=== PATIENT | male | born 1995 | race Caucasian/White ===

== ENCOUNTER 2017-11-09 14:32 | Emergency (ER) | payer BC, SELFPAY ==
[2017-11-09 14:33] VITALS: BP 133/72; PULSE 77; RESP 16; TEMP 36; BMI 22.2
--- NOTE | 2017-11-09 15:50 | EKG12_ITS ---
Test Reason : DYSRHYTHMIA Blood Pressure : / mmHG Vent. Rate : 063 BPM Atrial Rate : 063 BPM P-R Int : 144 ms QRS Dur : 102 ms QT Int : 392 ms P-R-T Axes : 068 048 051 degrees QTc Int : 401 ms Normal sinus rhythm with sinus arrhythmia Normal ECG Confirmed by ZULLY CASTRO, NETO ([id number]), associate entertainment editor ZEKE CARDENAS ([id number]) on 11/12/2017 2:53:12 PM Referred By: MARIE Confirmed By:NETO ANDREA MD
--- NOTE | 2017-11-09 15:51 | ED.DCSUM_ITS ---
- ER Visit Summary Date of Service: 11/09/17 Chief Complaint: I think I am dehydrated History of Present Illness: The patient is a 22 M patient believes he is dehydrated because he works at [employer] and it was hot in there today. He had a headache and felt nauseous. He felt dizzy. He states it is better now that he is in the air conditioned area. He still has a headache and nausea. Denies any altered mental status feeling. No other symptoms Physical Examination: Vital signs reviewed. HEENT exam unremarkable. Heart is regular rate and rhythm without murmurs. Lungs are clear to auscultation. Abdomen is soft and nontender. Extremities reveal no edema. Skin exam normal. Neurologic exam normal. Test Results: EKG is normal sinus rhythm with no ST changes. Emergency Department Course and Treatment: Patient was orally rehydrated and given Zofran. He was already improved in the air conditioning. Leave he got overheated but there is no evidence of heat exhaustion or heat stroke. His pulse is normal. He will try to keep himself hydrated. I will give him Zofran ODT's for home Treatment Plan: Discharge Disposition: Dizziness, improved, nausea Impression: [] This note was generated with [employer] dictation software. It may contain incorrect words, spelling, and punctuation that were not noted in review of the chart prior to signing ED Disposition - Plan for ED Patient: Chief Complaint: Dizziness Referrals: Care Physician,No Primary [Primary Care Provider] -
[2017-11-09] MEDS: Ondansetron ODT 4 MG Tablet 8 MG PO (16:45)
[2017-11-09 16:47] VITALS: BP 130/74; PULSE 85; RESP 17; O2SAT 99
--- NOTE | 2017-11-09 17:08 | ED.DEP ---
ED Disposition - Plan for ED Patient: Disposition: Home or Assisted Living Chief Complaint: Dizziness Instructions: ED Dizziness [facility] Prescriptions: Ondansetron [Zofran Odt] 4 mg PO Q8H PRN PRN #10 tab PRN Reason: Nausea Referrals: Care Physician,No Primary [Primary Care Provider] -
[2017-11-09 17:20] VITALS: BP 117/82; PULSE 72; RESP 15; O2SAT 98
== END 2017-11-09 17:21 | disposition home or self-care (01) ==
PROVIDERS: Emergency Provider Emergency Medicine
DX: R42 Dizziness and giddiness (principal); R11.0 Nausea; R51 Headache; Z72.0 Tobacco use
CPT/HCPCS: 93005; 99283

== ENCOUNTER 2018-05-11 15:59 | Emergency (ER) | payer BC, SELFPAY ==
[2018-05-11 16:00] VITALS: BP 125/75; PULSE 106; RESP 14; TEMP 37.3; O2SAT 100; BMI 22.1
[2018-05-11 16:13] VITALS: TEMP 37.3
--- NOTE | 2018-05-11 16:27 | ED.VISSUMM ---
- ER Visit Summary Date of Service: 05/11/18 Chief Complaint: Abdominal pain History of Present Illness: The patient is a 22 M presenting with abdominal pain x 6 days. Patient complains of left upper quadrant abdominal pain. He states this is worsened with movement. He states it is not changed with eating. He denies nausea or vomiting. He has had intermittent diarrhea. Denies urinary complaints. Denies fever. Physical Examination: Vitals are stable. Patient is afebrile. Alert no acute distress. HEENT exam is unremarkable. Neck is supple. Lungs are clear and equal bilaterally. Heart is regular rate and rhythm. Abdomen is soft left upper quadrant tenderness with no rebound or guarding Extremities are unremarkable. Skin is warm and dry. Remainder of exam is unremarkable. Emergency Department Course and Treatment: Patient is given IV fluids. CBC, chemistries unremarkable. Liver lipase are normal. He was given a GI cocktail with improvement. He is resting comfortably on reevaluation. He is given a prescription for Pepcid. Advised to follow with Dr. Haq corporate operations compliance manager for no doc. Advised return to ED if worsening complaints. Disposition: Discharge home Impression: Abdominal pain This note was generated with [employer] dictation software. It may contain incorrect words, spelling, and punctuation that were not noted in review of the chart prior to signing ED Disposition - Plan for ED Patient: Chief Complaint: Abd Pain Instructions: ED Abdominal Pain Unkn Cause Prescriptions: Famotidine [Pepcid] 20 mg PO BID #28 tablet Referrals: Josias Haq MD [NON-STAFF] -
[2018-05-11] MEDS: 0.9% Normal Saline 1,000 ML 1000 ML IV (16:42)
[2018-05-11 16:58] LABS: Absolute Lymphocyte Count 1.48 X10^3/ul (0.83-4.51); Absolute Neutrophil Count 5.8 X10^3/uL (2.0-7.7); Basophil# 0.03 X10^3/uL; Basophil% 0.4 % (0-1); Eosinophil# 0.18 X10^3/uL; Eosinophils% 2.2 % (0-5); Hematocrit 44.3 % (40-54); Hemoglobin 14.9 g/dl (13.0-16.5); Lymphocyte # 1.48 X10^3/ul (4.0); Lymphocyte % 18.3 % (19-41); Mean Corp Hgb Conc 33.6 g/gl (32-36); Mean Corpuscular Hgb 31.8 pg (27.0-32.0); Mean Corpuscular Volume 94.7 fL (80-94); Monocyte% 7.4 % (0-10); Neutrophil # 5.77 X10^3/uL (2.7-7.7); Neutrophil % 71.6 % (47-70); Platelet Count 305 K/mm3 (150-450); RBC Distribution Width CV 13.2 % (11.6-14.6); RBC Distribution Width SD 45.6 fl (35.1-43.9); Red Blood Count 4.68 M/mm3 (4.6-6.2); White Blood Count 8.1 K/mm3 (4.4-11.0)
[2018-05-11 17:01] LABS: POSITIVE COUNT NO; POSITIVE DIFFERENTIAL NO; POSITIVE MORPHOLOGY NO
[2018-05-11 17:13] LABS: ALB/GLOB Ratio 1.1 RATIO (0.9-2.4); AST(SGOT) 18 U/L (15-37); Alanine Aminotransfer ALT/SGPT 12 U/L (16-61); Albumin, Serum 4.2 g/dL (3.2-5.0); Alkaline Phosphatase 76 U/L (45-117); Anion Gap 7 (5-15); BUN 10 mg/dL (7-18); BUN/Creat Ratio 11.5 RATIO (10-20); Chloride 101 mmol/L (98-107); Creatinine, Serum 0.87 mg/dL (0.70-1.30); EST Glomerular Filtration Rate 115 mL/min (>60); Est Glom Filt Rate - Afr Amer 139 mL/min (>60); Estimated Creatinine Clearance 130.75 ml/min; Globulin 3.7 g/dL (2.2-4.2); Glucose 100 mg/dL (74-106); Lipase 174 U/L (73-393); Potassium 4.3 mmol/L (3.5-5.1); Protein, Total 7.9 g/dL (6.4-8.2); Sodium Level 138 mmol/L (136-145)
[2018-05-11 17:14] VITALS: PULSE 103; RESP 16; TEMP 37.3; O2SAT 98
[2018-05-11] MEDS: Mag Hydrox/Al Hydrox/Simeth 30 ML UDC PO (17:35)
--- NOTE | 2018-05-11 17:50 | ED.DEP ---
ED Disposition - Plan for ED Patient: Chief Complaint: Abd Pain Instructions: ED Abdominal Pain Unkn Cause Prescriptions: Famotidine [Pepcid] 20 mg PO BID #28 tablet Referrals: Josias Haq MD [NON-STAFF] -
[2018-05-11 18:04] VITALS: BP 126/73; PULSE 79; RESP 16; O2SAT 98
== END 2018-05-11 18:07 | disposition home or self-care (01) ==
PROVIDERS: Emergency Provider Emergency Medicine
DX: R10.12 Left upper quadrant pain (principal); R19.7 Diarrhea, unspecified; F17.220 Nicotine dependence, chewing tobacco, uncomplicated
CPT/HCPCS: 80053; 83690; 85025; 96360; 99284; J7030

== ENCOUNTER 2018-12-16 18:17 | Emergency (ER) | payer BC, SELFPAY ==
[2018-12-16 18:18] VITALS: BP 133/83; PULSE 105; RESP 16; TEMP 36.7; O2SAT 98; BMI 19.8
--- NOTE | 2018-12-16 18:51 | EKG12_ITS ---
Test Reason : CHEST TIGHTNESS Blood Pressure : / mmHG Vent. Rate : 086 BPM Atrial Rate : 086 BPM P-R Int : 134 ms QRS Dur : 094 ms QT Int : 344 ms P-R-T Axes : 072 043 066 degrees QTc Int : 411 ms Normal sinus rhythm Normal ECG Confirmed by ANTONETTE CACERES ([id number]), news copy editor TOR MCCOY ([id number]) on 12/20/2018 1:17:35 PM Referred By: PAUL Confirmed By:ANTONETTE CACERES
--- NOTE | 2018-12-16 19:13 | ED.DCSUM_ITS ---
- ER Visit Summary Date of Service: 12/16/18 Chief Complaint: Chest pain and indigestion History of Present Illness: The patient is a 23 M past medical history of reflux and anxiety and depression. Patient complains of chest discomfort associated nausea. 2 weeks ago had similar episode was treated in area ER and was told that his EKG was normal. He denies shortness of breath. He has had some nausea but no vomiting. His symptoms also are consistent with reflux with some burning. He denies any melena. No hematemesis. No fever. No history of DVT or PE. No hemoptysis. No leg pain or swelling. No recent travel, surgery or hospitalization. Physical Examination: Well-appearing young male no acute distress vital signs stable afebrile. Pulse ox 98% on room air no hypoxia. HEENT exam normal. Neck nontender no JVD. No lymphadenopathy. Lungs clear to auscultation bilaterally. Heart regular rate and rhythm no murmur rate about 100. Chest wall has mild sternal tenderness. No ecchymosis or bruising. No subcu air crepitus. No redness or warmth. Abdomen soft nontender. Extremities moves all 4. Calves nontender no edema no cords. Neurologically is awake and alert with no focal motor deficits. Back exam normal. Test Results: EKG shows a sinus rhythm rate 86 no acute signs of UT or ischemia. Emergency Department Course and Treatment: Patient's history and exam are consistent want with musculoskeletal chest wall pain and to reflux. Treatment Plan: Motrin for muscular skeletal chest wall pain. [id number] Prilosec for the reflux. Disposition: Discharge Impression: Acute chest wall pain Reflux This note was generated with [employer] dictation software. It may contain incorrect words, spelling, and punctuation that were not noted in review of the chart prior to signing ED Disposition - Plan for ED Patient: Referrals: Ha Mary MD [Primary Care Provider] -
--- NOTE | 2018-12-16 19:16 | ED.DEP ---
ED Disposition - Plan for ED Patient: Disposition: Home or Assisted Living Instructions: CHEST WALL PAIN, Costochondritis, Gastroesophageal Reflux Disease (GERD) Referrals: Ha Mary MD [Primary Care Provider] - As Needed Additional Instructions: Motrin for the chest wall pain pain and inflammation. Prilosec [id number] for the reflux.
== END 2018-12-16 19:53 | disposition home or self-care (01) ==
PROVIDERS: Emergency Provider Emergency Medicine; Family Provider Family Medicine; PCP Family Medicine
DX: R07.89 Other chest pain (principal); K21.9 Gastro-esophageal reflux disease without esophagitis; F32.9 Major depressive disorder, single episode, unspecified; F41.9 Anxiety disorder, unspecified
CPT/HCPCS: 93005; 99282

== ENCOUNTER 2019-05-29 18:34 | Emergency (ER) | payer BC, SELFPAY ==
[2019-05-29 18:35] VITALS: BP 141/93; PULSE 75; RESP 16; TEMP 36.6; O2SAT 99; BMI 19.8
--- NOTE | 2019-05-29 19:01 | CT_ITS ---
STUDY: CT ABDOMEN AND PELVIS WITH CONTRAST REASON FOR EXAM: Male, 23 years old. MID ABDOMEN AND RT FLANK PAIN,ELEVATED BP -- HX:GERD RADIATION DOSAGE (If Supplied By Facility): CTDIvol = ( 10.79 ) mGy, DLP = ( 458.27 ) mGycm TECHNIQUE: Transaxial images were obtained from the dome of the diaphragm to the symphysis pubis without oral contrast. Oral and amp; IV Gastrografin and amp; 100mL Isovue-300 was administered. Sagittal and coronal images were reconstructed. Individualized dose optimization techniques were used for this CT. COMPARISON: 05/02/14. FINDINGS: The visualized lung bases are unremarkable. The visualized portions of the heart are within normal limits. Normal liver. Normal gallbladder and extrahepatic biliary system. Normal spleen. Normal pancreas. Normal bilateral adrenal glands. Normal right kidney. Normal left kidney. Normal visualized stomach. Normal small intestine. Normal colon. The partially visualized appendix is visualized and appears normal. Normal abdominal aorta. Normal inferior vena cava. Normal retroperitoneum. Normal urinary bladder. Normal visualized prostate gland. Normal abdominal wall. Normal osseous structures. CT/Abdomen/Pelvis WITH Contrast IMPRESSION: Normal enhanced CT of the abdomen and pelvis. Electronically Signed: John Colon, at 22:09 EST Tel , Service support ,
[2019-05-29] MEDS: Ondansetron 4 MG/2 ML Vial IV (19:20)
[2019-05-29] MEDS: Morphine 4 MG/ML Syringe IV (19:20)
[2019-05-29] MEDS: 0.9% Normal Saline 1,000 ML 1000 ML IV (19:20)
[2019-05-29 19:23] LABS: Bacteria 0 SEEN /hpf (None Seen); Mucous, Urine 0 SEEN /hpf (<or=2+); Squamous Epithelial Cells - UA 0 SEEN /hpf (0-5); White Blood Cells 0 SEEN /hpf (0-5)
[2019-05-29 19:29] LABS: Absolute Lymphocyte Count 1.83 X10^3/uL (0.83-4.51); Absolute Neutrophil Count 6.7 X10^3/uL (2.0-7.7); Basophil# 0.05 X10^3/uL; Basophil% 0.5 % (0-1); Eosinophil# 0.41 X10^3/uL; Eosinophils% 4.2 % (0-5); Hematocrit 49.1 % (40-54); Lymphocyte # 1.83 X10^3/ul (4.0); Lymphocyte % 18.6 % (19-41); Mean Corp Hgb Conc 32.6 g/dL (32-36); Mean Corpuscular Hgb 31.3 pg (27.0-32.0); Mean Corpuscular Volume 95.9 fL (80-94); Mean Platelet Vol. 9.2 fl (6.2-12.0); Monocyte# 0.83 X10^3/uL; Monocyte% 8.4 % (0-10); NRBC Flagged by Analyzer 0 % (0-5); Neutrophil # 6.72 X10^3/uL (2.7-7.7); Neutrophil % 68.1 % (47-70); Platelet Count 340 K/mm3 (150-450); RBC Distribution Width CV 13.1 % (11.6-14.6); Red Blood Count 5.12 M/mm3 (4.6-6.2); White Blood Count 9.9 K/mm3 (4.4-11.0)
[2019-05-29 19:32] LABS: Color, Urine Yellow (Yellow); Glucose, Dipstick Normal (Normal); Ketone-Dipstick Negative (Negative); Leukocyte Esterase-Dipstick Negative /ul (Negative); Nitrite-Dipstick Negative (Negative); Occult Blood-Urine 25 /ul (Negative); Protein-Dipstick 15 mg/dl (Negative); Specific Gravity, Urine 1.025 (1.002-1.030); Urine Bilirubin Dipstick Negative (Negative); Urine Clarity Clear (Clear); Urine Urobilinogen 1 mg/dl (Normal)
[2019-05-29 19:40] LABS: Red Blood Cells-Urine 0-5 SEEN /hpf (0-5)
[2019-05-29 19:44] LABS: AST(SGOT) 19 U/L (15-37); Alanine Aminotransfer ALT/SGPT 13 U/L (16-61); Alkaline Phosphatase 97 U/L (45-117); Anion Gap 2 (5-15); BUN 9 mg/dL (7-18); Calcium,Total 9.4 mg/dL (8.5-10.1); Chloride 105 mmol/L (98-107); EST Glomerular Filtration Rate 97 mL/min (>60); Est Glom Filt Rate - Afr Amer 117 mL/min (>60); Estimated Creatinine Clearance 103.77 ml/min; Globulin 4.1 g/dL (2.2-4.2); Glucose 95 mg/dL (74-106); Lipase 177 U/L (73-393); Protein, Total 8.1 g/dL (6.4-8.2); Sodium Level 139 mmol/L (136-145)
[2019-05-29 20:37] VITALS: BP 129/81; PULSE 80; RESP 17; O2SAT 98
--- NOTE | 2019-05-29 22:13 | ED.DCSUM_ITS ---
- ER Visit Summary Date of Service: 05/29/19 Chief Complaint: Abdominal pain History of Present Illness: The patient is a [address] Posada. He reports he has right-sided abdominal pain that began abruptly at 5:00 this evening. Says sharp pain Zeta 10 at worst and 6 out of 10 currently. Is worsen ed by movement. Is unchanged with food. She relieved by remaining still. He denies any nausea, vomiting, or diarrhea. His last bowel was today. No hematochezia. He said dysuria for the past 2 days. No frequency. No penile discharge. No testicular pain. Patient denies any history of fatty or spicy food intolerance. Reports approximately 2 hours prior to this he had a famous bowl from [facility]. Physical Examination: Vitals: Stable. Afebrile. General: Well-nourished and well-developed. Head: Normocephalic atraumatic. Neck: Supple, no lymphadenopathy. No JVD. Nontender. Cardiovascular: Regular rate and rhythm. No murmurs. Respiratory: No respiratory distress. Clear to auscultation bilaterally. Abdominal: Soft, mild tenderness palpation the right upper and right lower quadrants, nondistended, normal bowel sounds. No guarding, rebound, or peritoneal signs. Back: Nontender. Extremities: Nontender, no edema. Skin: Normal color, no rash. Neurologic: Alert and oriented ?3. Cranial nerves II through XII are intact. Normal strength and sensation. Psych: Normal affect. Test Results: CBC is marked for lymphocytes of 19. Chem-7 is normal. LFTs marked for an ALT of 13. Lipase normal. UA is negative. CT the abdomen pelvis with p.o. and IV contrast is normal. Normal appendix. Emergency Department Course and Treatment: Patient was treated with a dose of morphine and Zofran. He is resting comfortably. Treatment Plan: Patient will be discharged with Bentyl and Zofran. Instructed to follow-up his primary care physician 1 to 2 days if not improving. Return to the emergency department for any worsening symptoms. Disposition: To home in improved and stable condition. Impression: 1. Abdominal pain, uncertain cause. This note was generated with [employer] software. It may contain incorrect words, spelling, and punctuation that were not noted in review of the chart prior to signing ED Disposition - Plan for ED Patient: Disposition: Home or Assisted Living Instructions: ABDOMINAL PAIN, Unkown Cause, (Male) Prescriptions: Dicyclomine HCl [Bentyl] 20 mg PO TIDAC #20 cap Prescription Printed Ondansetron [Zofran Odt] 4 mg PO Q8H PRN PRN #10 tab PRN Reason: Nausea Prescription Printed Referrals: Ha Mary MD [Primary Care Provider] - 1-2 Days if not improving
[2019-05-29 22:37] VITALS: BP 118/77; PULSE 69; RESP 15; O2SAT 99
== END 2019-05-29 22:38 | disposition home or self-care (01) ==
LOC: ED 19:45
PROVIDERS: Emergency Provider Emergency Medicine; PCP Family Medicine
DX: R10.9 Unspecified abdominal pain (principal); M54.9 Dorsalgia, unspecified; R30.0 Dysuria; R05 Cough
CPT/HCPCS: 74177; 80053; 81001; 83690; 85025; 96361; 96374; 96375; 99283; J7030; Q9967; J2405

== ENCOUNTER 2019-05-31 10:58 | Emergency (ER) | payer BC, SELFPAY ==
[2019-05-31 10:59] VITALS: BP 131/74; PULSE 82; RESP 16; TEMP 36.9; O2SAT 99; BMI 19.8
--- NOTE | 2019-05-31 11:19 | ED.VISSUMM ---
- ER Visit Summary Date of Service: 05/31/19 Chief Complaint: Abdominal pain History of Present Illness: The patient is a 23 M who presents with abdominal pain that is been constant for the past 2 days. Patient states the pain waxes and wanes. Patient describes the pain as cramping and burning. Patient states the pain is over the upper abdomen. Patient was seen here 2 days ago and states she was told to follow-up here in the emergency department or with his primary care physician in 1 to 2 days if he is not any better. Patient states he called his primary care physician who told him to just come to the emergency department. Patient admits to nausea but denies any vomiting. Patient denies any diarrhea melena or hematochezia. Patient does admit to some dysuria and urinary frequency. Physical Examination: Vital signs are stable. Patient is afebrile. Patient is in no acute distress. Oral mucosa is pink and moist. Neck is supple. Trachea is midline. There is no JVD noted. Heart was regular rate and rhythm. Lungs are clear and equal bilaterally. Abdomen is soft. Bowel sounds are normal. There is mild diffuse tenderness. There is no rebound or guarding noted. Skin is warm dry. Cranial nerves II through XII are intact. There are no focal motor or sensory deficits noted. Extremities are intact. There is no calf tenderness or edema. Test Results: CBC and comprehensive metabolic profile were within normal limits. Urinalysis does not show any evidence of urinary tract infection. Emergency Department Course and Treatment: Patient was given IV fluids here. Patient was given Bentyl and Zofran. Patient is feeling better on reevaluation. Patient was instructed to continue his Bentyl at home as needed. Patient was instructed to follow-up with his primary care physician in 3 to 5 days. Patient was instructed to return if worse in any way. Patient understood and was agreeable with the plan. All questions were answered. Disposition: Discharge home Impression: Abdominal pain This note was generated with [employer] dictation software. It may contain incorrect words, spelling, and punctuation that were not noted in review of the chart prior to signing ED Disposition - Plan for ED Patient: Disposition: Home or Assisted Living Diagnosis: Abdominal pain Instructions: ABDOMINAL PAIN, Unkown Cause, (Male) Referrals: Ha Mary MD [Primary Care Provider] - 3-5 Days
[2019-05-31] MEDS: 0.9% Normal Saline 1,000 ML 1000 ML IV (11:34)
[2019-05-31] MEDS: Dicyclomine 20 MG/2 ML Vial IM (11:35)
[2019-05-31] MEDS: Ondansetron 4 MG/2 ML Vial IV (11:35)
[2019-05-31 11:46] LABS: Bacteria 0 SEEN /hpf (None Seen); Mucous, Urine 0 SEEN /hpf (<or=2+); Red Blood Cells-Urine 0 SEEN /hpf (0-5); White Blood Cells 0 SEEN /hpf (0-5)
[2019-05-31 11:52] LABS: Absolute Lymphocyte Count 1.28 X10^3/uL (0.83-4.51); Basophil# 0.05 X10^3/uL; Basophil% 0.6 % (0-1); Eosinophil# 0.13 X10^3/uL; Eosinophils% 1.4 % (0-5); Hematocrit 45.3 % (40-54); Lymphocyte # 1.28 X10^3/ul (4.0); Lymphocyte % 14.3 % (19-41); Mean Corp Hgb Conc 33.1 g/dL (32-36); Mean Corpuscular Volume 96.6 fL (80-94); Mean Platelet Vol. 9.1 fl (6.2-12.0); Monocyte# 0.53 X10^3/uL; Monocyte% 5.9 % (0-10); NRBC Flagged by Analyzer 0 % (0-5); Neutrophil # 6.97 X10^3/uL (2.7-7.7); Neutrophil % 77.6 % (47-70); Platelet Count 314 K/mm3 (150-450); RBC Distribution Width CV 12.7 % (11.6-14.6); RBC Distribution Width SD 45.6 fl (35.1-43.9); Red Blood Count 4.69 M/mm3 (4.6-6.2)
[2019-05-31 11:53] LABS: Color, Urine Yellow (Yellow); Glucose, Dipstick Normal (Normal); Ketone-Dipstick 5 mg/dl (Negative); Leukocyte Esterase-Dipstick Negative /ul (Negative); Nitrite-Dipstick Negative (Negative); Occult Blood-Urine Negative /ul (Negative); Protein-Dipstick 15 mg/dl (Negative); Specific Gravity, Urine 1.015 (1.002-1.030); Urine Clarity Sl. Cloudy (Clear); Urine Urobilinogen 8 mg/dl (Normal)
[2019-05-31 12:00] LABS: Urine Bilirubin Dipstick 1 mg/dL (Negative)
[2019-05-31 12:02] LABS: Squamous Epithelial Cells - UA 0-5 SEEN /hpf (0-5)
[2019-05-31 12:04] LABS: ALB/GLOB Ratio 1.1 RATIO (0.9-2.4); AST(SGOT) 17 U/L (15-37); Alanine Aminotransfer ALT/SGPT 13 U/L (16-61); Albumin, Serum 4.1 g/dL (3.2-5.0); Alkaline Phosphatase 88 U/L (45-117); Anion Gap 4 (5-15); BUN 8 mg/dL (7-18); BUN/Creat Ratio 8.7 RATIO (10-20); Calcium,Total 9.3 mg/dL (8.5-10.1); Chloride 103 mmol/L (98-107); Creatinine, Serum 0.92 mg/dL (0.70-1.30); EST Glomerular Filtration Rate 106 mL/min (>60); Est Glom Filt Rate - Afr Amer 129 mL/min (>60); Globulin 3.7 g/dL (2.2-4.2); Glucose 99 mg/dL (74-106); Lipase 130 U/L (73-393); Potassium 3.6 mmol/L (3.5-5.1); Protein, Total 7.8 g/dL (6.4-8.2); Sodium Level 140 mmol/L (136-145)
[2019-05-31 12:56] VITALS: BP 129/66; PULSE 72; RESP 15; O2SAT 99
== END 2019-05-31 12:57 | disposition home or self-care (01) ==
PROVIDERS: Emergency Provider Emergency Medicine; PCP Family Medicine
DX: R10.9 Unspecified abdominal pain (principal); R11.0 Nausea; R30.0 Dysuria; R35.0 Frequency of micturition; F17.220 Nicotine dependence, chewing tobacco, uncomplicated
CPT/HCPCS: 80053; 81001; 83690; 85025; 96361; 96372; 96374; 99283; J7030; J2405

== ENCOUNTER 2019-06-18 19:39 | Emergency (ER) | payer BC, SELFPAY ==
[2019-06-18 19:41] VITALS: BP 146/67; PULSE 61; RESP 18; TEMP 36.9; O2SAT 98; BMI 20.7
[2019-06-18 20:27] LABS: Absolute Lymphocyte Count 2.69 X10^3/uL (0.83-4.51); Absolute Neutrophil Count 4.3 X10^3/uL (2.0-7.7); Basophil# 0.05 X10^3/uL; Basophil% 0.6 % (0-1); Eosinophil# 0.62 X10^3/uL; Eosinophils% 7.6 % (0-5); Hematocrit 43.7 % (40-54); Hemoglobin 14.4 g/dL (13.0-16.5); Lymphocyte # 2.69 X10^3/ul (4.0); Lymphocyte % 32.9 % (19-41); Mean Corpuscular Hgb 31.5 pg (27.0-32.0); Mean Corpuscular Volume 95.6 fL (80-94); Mean Platelet Vol. 9.6 fl (6.2-12.0); Monocyte# 0.56 X10^3/uL; Monocyte% 6.8 % (0-10); NRBC Flagged by Analyzer 0 % (0-5); Neutrophil # 4.25 X10^3/uL (2.7-7.7); Platelet Count 341 K/mm3 (150-450); RBC Distribution Width CV 12.6 % (11.6-14.6); RBC Distribution Width SD 44.6 fl (35.1-43.9); Red Blood Count 4.57 M/mm3 (4.6-6.2); White Blood Count 8.2 K/mm3 (4.4-11.0)
[2019-06-18] MEDS: Mag Hydrox/Al Hydrox/Simeth 30 ML UDC PO (20:42)
[2019-06-18 20:54] LABS: ALB/GLOB Ratio 1.1 RATIO (0.9-2.4); AST(SGOT) 19 U/L (15-37); Alanine Aminotransfer ALT/SGPT 13 U/L (16-61); Albumin, Serum 3.8 g/dL (3.2-5.0); Alkaline Phosphatase 72 U/L (45-117); Anion Gap 3 (5-15); BUN 9 mg/dL (7-18); BUN/Creat Ratio 10.3 RATIO (10-20); Calcium,Total 9.1 mg/dL (8.5-10.1); Chloride 108 mmol/L (98-107); Creatinine, Serum 0.88 mg/dL (0.70-1.30); EST Glomerular Filtration Rate 113 mL/min (>60); Est Glom Filt Rate - Afr Amer 137 mL/min (>60); Estimated Creatinine Clearance 123.76 ml/min; Globulin 3.5 g/dL (2.2-4.2); Glucose 91 mg/dL (74-106); Lipase 191 U/L (73-393); Potassium 4.3 mmol/L (3.5-5.1); Protein, Total 7.3 g/dL (6.4-8.2); Sodium Level 140 mmol/L (136-145)
[2019-06-18 22:31] VITALS: BP 106/74; PULSE 70; RESP 15; O2SAT 97
--- NOTE | 2019-06-18 22:31 | ED.DEP ---
ED Disposition - Plan for ED Patient: Instructions: ABDOMINAL PAIN, Unkown Cause, (Male) Prescriptions: Dicyclomine HCl [Bentyl] 20 mg PO TIDAC #20 capsule Referrals: Ha Mary MD [Primary Care Provider] -
--- NOTE | 2019-06-18 22:35 | ED.VISSUMM ---
- ER Visit Summary Date of Service: 06/18/19 Chief Complaint: Abdominal pain History of Present Illness: The patient is a 23 M presenting with abdominal pain. Patient states this started 3 weeks ago. He has had intermittent pain. He was seen in the ED on May 29 and May 31 for similar complaints. He was initially given Bentyl which he states helped his pain but he has run out of this medication. He complains of nausea with no vomiting. He has had diarrhea. Denies urinary complaints. Denies fever. Physical Examination: Vitals are stable. Patient is afebrile. Alert no acute distress. HEENT exam is unremarkable. Neck is supple. Lungs are clear and equal bilaterally. Heart is regular rate and rhythm. Abdomen is soft mild diffuse tenderness with no rebound or guarding Extremities are unremarkable. Skin is warm and dry. No focal neurologic deficit. Remainder of exam is unremarkable. Emergency Department Course and Treatment: CBC, chemistries unremarkable. Liver lipase are normal. He was given GI cocktail. He continues have pain and was given Bentyl. Repeat abdominal exam is soft and nontender with no rebound or guarding. He is given prescription for Bentyl. Advised to follow-up with his primary care physician. Advised return to ED for worsening complaints. Disposition: Discharge home Impression: Abdominal pain This note was generated with [employer] dictation software. It may contain incorrect words, spelling, and punctuation that were not noted in review of the chart prior to signing ED Disposition - Plan for ED Patient: Instructions: ABDOMINAL PAIN, Unkown Cause, (Male) Prescriptions: Dicyclomine HCl [Bentyl] 20 mg PO TIDAC #20 cap Prescription Printed Referrals: Ha Mary MD [Primary Care Provider] -
[2019-06-18] MEDS: Dicyclomine 10 MG Capsule 20 MG PO (22:45)
== END 2019-06-18 22:53 | disposition home or self-care (01) ==
PROVIDERS: Emergency Provider Emergency Medicine; PCP Family Medicine
DX: R10.9 Unspecified abdominal pain (principal); R11.0 Nausea; R19.7 Diarrhea, unspecified; Z79.899 Other long term (current) drug therapy
CPT/HCPCS: 80053; 83690; 85025; 99284

== ENCOUNTER 2019-11-26 00:12 | Emergency (ER) | payer BC, SELFPAY ==
[2019-11-26 00:14] VITALS: BP 124/80; PULSE 107; RESP 18; TEMP 35.6; O2SAT 98; BMI 20.7
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
[2019-11-26 01:02] VITALS: BP 119/72; PULSE 105; RESP 16; O2SAT 95
== END 2019-11-26 01:06 ==
LOC: ED 00:52
PROVIDERS: Emergency Provider Student in an Organized Health Care Education/Training Program; PCP Family Medicine
DX: F41.9 Anxiety disorder, unspecified (principal); Z71.1 Person with feared health complaint in whom no diagnosis is made
CPT/HCPCS: 99284

== ENCOUNTER 2019-12-29 20:59 | Emergency (ER) | payer BC, SELFPAY ==
[2019-12-29 21:00] VITALS: BP 146/79; PULSE 70; RESP 18; TEMP 36.9; O2SAT 98; BMI 19.5
--- NOTE | 2019-12-29 22:33 | RAD_ITS ---
STUDY: X-RAY CHEST REASON FOR EXAM: Male, 24 years old. Shortness of breath, upper abdominal pain, nausea. TECHNIQUE: Single frontal view of the chest. COMPARISON: 02/16/2017 FINDINGS: The lungs are clear and expanded. There is no demonstrated pleural abnormality. Normal size heart. Normal mediastinum and kya. Normal visualized pulmonary arteries. Normal visualized aortic arch and descending thoracic aorta. Normal visualized thoracic spine. Normal visualized ribs, clavicles, and shoulders. There is no demonstrated abnormality of the visualized soft tissue structures of the upper abdomen. RAD/Chest 1 View (Portable) IMPRESSION: Normal x-ray examination of the chest. Electronically Signed: Kyrie Son MD at 23:04 EDT Tel , Service support ,
--- NOTE | 2019-12-29 22:33 | EKG12_ITS ---
Test Reason : SOB Blood Pressure : / mmHG Vent. Rate : 054 BPM Atrial Rate : 054 BPM P-R Int : 132 ms QRS Dur : 102 ms QT Int : 396 ms P-R-T Axes : 066 061 059 degrees QTc Int : 375 ms Sinus bradycardia Otherwise normal ECG Confirmed by XAVIER CASTRO, MALLORY ([id number]), slot editor TOR MCCOY ([id number]) on 01/06/2020 11:19:10 A M Referred By: RICHA Confirmed By:ELIAZAR PARK MD
[2019-12-29] MEDS: 0.9% Normal Saline 1,000 ML 1000 ML IV (23:31)
[2019-12-29] MEDS: Ketorolac 30 MG/ML Syringe 15 MG IV (23:31)
[2019-12-29] MEDS: Ondansetron 4 MG/2 ML Vial IV (23:32)
[2019-12-29 23:34] LABS: Absolute Lymphocyte Count 1.92 X10^3/uL (0.83-4.51); Absolute Neutrophil Count 7.7 X10^3/uL (2.0-7.7); Basophil# 0.04 X10^3/uL; Basophil% 0.4 % (0-1); Eosinophil# 0.21 X10^3/uL; Hematocrit 46.4 % (40-54); Hemoglobin 15.3 g/dL (13.0-16.5); Lymphocyte # 1.92 X10^3/ul (4.0); Lymphocyte % 18.1 % (19-41); Mean Corpuscular Hgb 31.5 pg (27.0-32.0); Mean Corpuscular Volume 95.7 fL (80-94); Mean Platelet Vol. 9.1 fl (6.2-12.0); Monocyte# 0.76 X10^3/uL; Monocyte% 7.2 % (0-10); NRBC Flagged by Analyzer 0 % (0-5); Neutrophil # 7.66 X10^3/uL (2.7-7.7); Platelet Count 339 K/mm3 (150-450); RBC Distribution Width CV 13.8 % (11.6-14.6); RBC Distribution Width SD 48.3 fl (35.1-43.9); Red Blood Count 4.85 M/mm3 (4.6-6.2); White Blood Count 10.6 K/mm3 (4.4-11.0)
[2019-12-29 23:51] LABS: ALB/GLOB Ratio 1.2 RATIO (0.9-2.4); AST(SGOT) 19 U/L (15-37); Alanine Aminotransfer ALT/SGPT 10 U/L (16-61); Albumin, Serum 4.3 g/dL (3.2-5.0); Alkaline Phosphatase 77 U/L (45-117); Anion Gap 5 (5-15); BUN 12 mg/dL (7-18); BUN/Creat Ratio 15.2 RATIO (10-20); Calcium,Total 9.3 mg/dL (8.5-10.1); Chloride 104 mmol/L (98-107); Creatinine, Serum 0.79 mg/dL (0.70-1.30); EST Glomerular Filtration Rate 127 mL/min (>60); Est Glom Filt Rate - Afr Amer 154 mL/min (>60); Estimated Creatinine Clearance 128.39 ml/min; Globulin 3.6 g/dL (2.2-4.2); Glucose 85 mg/dL (74-106); Lipase 148 U/L (73-393); Potassium 3.8 mmol/L (3.5-5.1); Protein, Total 7.9 g/dL (6.4-8.2); Sodium Level 139 mmol/L (136-145)
--- NOTE | 2019-12-30 00:23 | ED.DCSUM_ITS ---
- ER Visit Summary Date of Service: 12/30/19 Chief Complaint: Abdominal pain History of Present Illness: The patient is a [address] Posada. He reports that he has upper abdominal pain that 2 days ago. He describes as a constant aching pain is 7-10 at worst and 5-10 currently. Its decreased by sl eeping and increased by nothing. He had chills, but no fever. He does report he is been short of breath today. He denies any chest pain or cough. He denies any dysuria or frequency. Does complain of generalized weakness. Physical Examination: Vitals: Stable. Afebrile. General: Well-nourished and well-developed. Head: Normocephalic atraumatic. Neck: Supple, no lymphadenopathy. No JVD. Nontender. Cardiovascular: Regular rate and rhythm. No murmurs. Respiratory: No respiratory distress. Clear to auscultation bilaterally. Abdominal: Soft, moderate epigastric and mild right upper quadrant tenderness to palpation, nondistended, normal bowel sounds. No guarding, rebound, or peritoneal signs. Back: Nontender. Extremities: Nontender, no edema. Skin: Normal color, no rash. Neurologic: Alert and oriented ?3. Cranial nerves II through XII are intact. Normal strength and sensation. Psych: Normal affect. Test Results: EKG is sinus bradycardia at 54 with no acute changes. LFTs show an AST of 10. Lipase is normal. Chem-7 is normal. CBC shows segmented neutrophils 72 lymphocytes of 18. Clinical Impression(s) from Imaging Studies Chest X-Ray 12/29/19 22:33 IMPRESSION: Normal x-ray examination of the chest. Electronically Signed: Kyrie Son MD at 23:04 EDT Tel , Service support , Emergency Department Course and Treatment: Patient was treated with Toradol and Zofran IV. He is resting comfortably. Treatment Plan: Patient will be discharged with Pepcid and Zofran. Instructed to follow-up with his primary care physician in 3 to 5 days if not improving. Return to the emergency department for any worsening symptoms. Disposition: To home in improved and stable condition. Impression: 1. Abdominal pain, uncertain cause. This note was generated with Dragon dictation software. It may contain incorrect words, spelling, and punctuation that were not noted in review of the chart prior to signing ED Disposition - Plan for ED Patient: Disposition: Home or Assisted Living Instructions: ED Epigastric Pain [facility] Prescriptions: Famotidine [Pepcid] 20 mg PO BID #28 tab Prescription Printed Ondansetron [Zofran Odt] 4 mg PO Q8H PRN PRN #10 tab PRN Reason: Nausea Prescription Printed Referrals: Ha Mary MD [Primary Care Provider] - 3-5 Days if not improving
[2019-12-30 00:53] VITALS: BP 133/72; PULSE 75; RESP 16; O2SAT 98
== END 2019-12-30 00:55 | disposition home or self-care (01) ==
PROVIDERS: Emergency Provider Emergency Medicine; PCP Family Medicine
DX: R10.10 Upper abdominal pain, unspecified (principal); R11.2 Nausea with vomiting, unspecified; R06.00 Dyspnea, unspecified; R53.1 Weakness; F41.9 Anxiety disorder, unspecified; Z72.0 Tobacco use; Z79.899 Other long term (current) drug therapy
CPT/HCPCS: 71045; 80053; 83690; 85025; 93005; 96361; 96374; 96375; 99283; J7030; A4216; J2405

== ENCOUNTER 2020-01-20 17:20 | Emergency (ER) | payer BC, SELFPAY ==
[2020-01-20 17:21] VITALS: BP 137/79; PULSE 91; RESP 16; TEMP 36.6; O2SAT 99; BMI 19.8
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
[2020-01-20] MEDS: Diphth,Pertuss(Acell),Tet Vac 0.5 ML Vial IM (18:03)
== END 2020-01-20 18:31 | disposition home or self-care (01) ==
PROVIDERS: Emergency Provider Emergency Medicine; PCP Family Medicine
DX: S61.432A Puncture wound without foreign body of left hand, initial encounter (principal); W54.0XXA Bitten by dog, initial encounter; Y93.9 Activity, unspecified; Y92.9 Unspecified place or not applicable; Y99.9 Unspecified external cause status; Z79.899 Other long term (current) drug therapy
CPT/HCPCS: 73130; 90715; 99282

== ENCOUNTER → 2020-02-09 17:29 | Outpatient (CLI) | payer BC, SELFPAY ==
[2020-01-20 17:21] VITALS: BMI 19.8
== END ==
PROVIDERS: PCP Family Medicine; Referring Provider Family Medicine; Visit Provider Family Medicine
DX: Z20.828 Contact with and (suspected) exposure to other viral communicable diseases (principal); R05 Cough; J02.9 Acute pharyngitis, unspecified
CPT/HCPCS: 87635; C9803; U0003

== ENCOUNTER 2020-10-07 17:29 | Emergency (ER) | payer SELFPAY ==
[2020-10-07 17:30] VITALS: BP 112/90; PULSE 97; RESP 14; TEMP 36.6; O2SAT 97; BMI 20.2
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
[2020-10-07] MEDS: Diphth,Pertuss(Acell),Tet Vac 0.5 ML Vial IM (17:55)
[2020-10-07 18:07] VITALS: BP 115/88; PULSE 87; RESP 16; O2SAT 99
== END 2020-10-07 18:07 | disposition home or self-care (01) ==
PROVIDERS: Emergency Provider Student in an Organized Health Care Education/Training Program; PCP Family Medicine
DX: S61.011A Laceration without foreign body of right thumb without damage to nail, initial encounter (principal); F17.200 Nicotine dependence, unspecified, uncomplicated; F32.9 Major depressive disorder, single episode, unspecified; W26.0XXA Contact with knife, initial encounter; Z79.899 Other long term (current) drug therapy
CPT/HCPCS: 90471; 90715; 99282

== ENCOUNTER 2020-11-11 15:47 | Emergency (ER) | payer SELFPAY ==
[2020-11-11 15:48] VITALS: BP 124/89; PULSE 90; RESP 16; TEMP 36.9; O2SAT 96
--- NOTE | 2020-11-11 16:18 | EDS_ITS ---
HPI HPI - GI History of Present Illness Chief Complaint: Other, Pain/Inj Detail of Chief Complaint: Epigastric abdominal pain Informant: patient Abdominal Pain/Flank Pain Onset: Month(s) Context: Gradual Onset Timing: Intermittent Quality: Aching Location: Epigastric Current Severity: Mild Maximum Severity: Mild Nausea/Vomiting/Emesis GI Symptom: Positive for Nausea; Negative for Vomiting Onset: Yesterday Diarrhea/Melena/Hematochezia GI Symptom: Negative for Diarrhea and Melena Associated Symptoms Associated Symptoms: Negative for Dysuria and Frequency Narrative Narrative: 25-year-old male past medical history depression. States for the last 2 years has had intermittent epigastric abdominal pain. Has had extensive work-up including CAT scans upper and lower endoscopy without any specific diagnosis. He does not believe he is ever had pancreatitis or been told he had an ulcer or gastritis. States he said the pain intermittently last few months worse in the last several days. Worse with drinking water. Nausea but no vomiting. No diarrhea or melena. Prior similar symptoms: Yes Recent Illness/Hospitalization: No PFSH PFSH Medical History Anxiety Depression Home Medications sertraline 50 mg PO DAILY 12/29/19 [History Last Taken Unknown] ondansetron 4 mg PO Q6H PRN #10 tab 11/11/20 [Rx Last Taken Unknown] pantoprazole [Protonix] 20 mg PO DAILY #30 tab 11/11/20 [Rx Last Taken Unknown] Allergy/AdvReac Type Severity Reaction Status Date / Time venlafaxine [From Effexor] Allergy Other Verified 11/11/20 15:48 Social History Smoking Status: Current some day smoker tobacco type: smokeless tobacco ROS ROS ED ROS Narrative Epigastric dull pain with nausea but no vomiting or diarrhea. No melena or fever. No weight loss. Review of Systems ROS Unobtainable: Denies due to encephalopathy Constitutional Constitutional ED: Denies chills, fever(s) or subjective ENT ENT ED: Denies ear pain or sore throat Cardiovascular Cardiovascular: Denies chest pain Respiratory/Chest Respiratory/Chest: Denies dyspnea Gastrointestinal Gastrointestinal: Reports abdominal pain and nausea; Denies constipation, diarrhea, melena or vomiting Genitourinary Genitourinary ED: Denies dysuria or hematuria Musculoskeletal Musculoskeletal: Denies myalgias Integumentary Denies rash Neurologic Neurologic: Denies headache(s) Psychiatric Psychiatric: Denies depression Endocrine Endocrinology: Denies polyuria Hematologic/Lymphatic Hematologic/Lymphatic: Denies easy bruising Allergic/Immunologic Allergic/Immunologic ED: Denies urticaria EXAM Physical Exam Narrative Exam Narrative: Well-appearing young male no acute distress. Vital signs stable afebrile. HEENT exam unremarkable. Moist remembers. Lungs are clear equal symmetrical bilateral. Heart regular rhythm no murmur. Abdomen soft. Nondistended. Normal bowel sounds no peritoneal signs. Right upper and right lower quadrant unremarkable. He has mild tenderness in epigastric region. No signs of obstruction. No hernia or mass. Extremities, back and neurologic exam are unremarkable. Const Vital Signs: 11/11/20 15:48 Temperature 98.5 F Temperature Source Temporal Pulse Rate 90 Respiratory Rate 16 Blood Pressure 124/89 H Blood Pressure Mean 100 Pulse Ox 96 Oxygen Delivery Method Room Air Positive well nourished and well developed; Negative for obese, cachectic or c ontractures General Appearance ED: well developed; Negative for cachectic or contractures Nutritional Appearance: Negative for cachectic or obese HEENT normocephalic Eyes PERRL and EOMs intact bilaterally Neck no lymphadenopathy, supple and no JVD General: Negative for tenderness Resp normal respiratory effort and clear to auscultation bilaterally Auscultation: Negative for rales, rhonchi or wheezes Cardio regular rate, regular rhythm, S1 normal heart sound, S2 normal heart sound and no murmurs GI non-distended and no masses; Negative for non-tender GI Narrative: Mild epigastric tenderness only. Very benign abdominal exam. Inspection: Negative for abdominal distention Auscultation: normoactive bowel sounds; Negative for hyperactive bowel sounds or hypoactive bowel sounds Palpation: soft and tender; Negative for guarding, rigid or rebound tenderness present Back/Spine no CVA tenderness Extremity full ROM General Extremety ED: Negative for edema or tenderness General Extremity: Negative for edema Neuro Sensorium / Orientation: alert, oriented to person, oriented to place and oriented to time Psych mental status grossly normal Skin Lesions: no lesions Rashes: no rashes MDM MDM MDM Narrative Medical decision making narrative: Young male history of epigastric abdominal pain without diagnosis after extensive work-up including upper and lower endoscopy and reported CAT scans. Labs are being obtained. To be treated with Zofran for nausea Protonix IV for possible gastritis. Labs are pending. I do not think he needs imaging at this time. Repeat exam patient is doing well at 4:58 PM abdomen is benign. Says he feels better after the IV fluids and the IV Protonix. He will be discharged to home. Impression: Epigastric abdominal pain uncertain etiology Rule out gastritis Lab Data Attestation: I reviewed the patient's lab results. Lab results narrative: Labs are unremarkable as expected. Normal white count. Normal hemoglobin. Normal electrolytes. Normal creatinine. Normal liver enzymes. Normal lipase. Labs: Laboratory Results - last 24 hr 11/11/20 11/11/20 16:03 16:03 WBC 9.8 RBC 5.16 Hgb 16.2 Hct 47.7 MCV 92.4 MCH 31.4 MCHC 34.0 RDW Std Deviation 46.3 H RDW Coeff of Zahraa 13.5 Plt Count 378 MPV 9.2 Immature Gran % (Auto) 0.200 Neut % (Auto) 78.8 H Lymph % (Auto) 15.3 L [place] % (Auto) 4.8 Eos % (Auto) 0.4 Baso % (Auto) 0.5 Absolute Neuts (auto) 7.7 Absolute Lymphs (auto) 1.49 Nucleated RBC % 0 Sodium 136 Potassium 4.2 Chloride 98 Carbon Dioxide 29.0 Anion Gap 9 BUN 16 Creatinine 0.90 Estim Creat Clear Calc 114.53 Est GFR (MDRD) Af Amer 132 Est GFR (MDRD) Non-Af 109 BUN/Creatinine Ratio 17.9 Glucose 92 Calcium 9.4 Total Bilirubin 0.80 AST 30 ALT 11 L Alkaline Phosphatase 89 Total Protein 8.2 Albumin 4.5 Globulin 3.7 Albumin/Globulin Ratio 1.2 Lipase 111 Discharge Plan Triage Chief Complaint: Other, Pain/Inj ED Provider: Johnny Collins Dx/Rx/DC Orders Instructions: Abdominal Pain, ED Gastritis (Adult) Prescriptions: New ondansetron 4 mg tablet,disintegrating 4 mg PO Q6H PRN (Reason: nausea and vomiting) Qty: 10 RF: 0 pantoprazole [Protonix] 20 mg tablet,delayed release (DR/EC) 20 mg PO DAILY Qty: 30 RF: 0 No Action sertraline 50 MG tablet 50 mg PO DAILY RF: 0 Primary Care Provider: Ha Mary Referrals: Ha Mary MD [Primary Care Provider] - 1 Week if not improving Activity Restrictions/Additional Instructions: Plenty of fluids and rest. Zofran as needed for nausea. You may swallow it or let it dissolve in your tongue if you are too nauseated. Protonix 1 pill twice a day for the first 10 days and then 1 daily as needed. Disposition Disposition: Home, Self Care
[2020-11-11] MEDS: 0.9% Normal Saline 1,000 ML 1000 ML IV (16:24)
[2020-11-11] MEDS: Ondansetron 4 MG/2 ML Vial IV (16:24)
[2020-11-11 16:26] LABS: Absolute Lymphocyte Count 1.49 X10^3/uL (0.83-4.51); Absolute Neutrophil Count 7.7 X10^3/uL (2.0-7.7); Basophil# 0.05 X10^3/uL; Basophil% 0.5 % (0-1); Eosinophil# 0.04 X10^3/uL; Eosinophils% 0.4 % (0-5); Hematocrit 47.7 % (40-54); Hemoglobin 16.2 g/dL (13.0-16.5); Lymphocyte # 1.49 X10^3/ul (0.83-4.51); Lymphocyte % 15.3 % (19-41); Mean Corpuscular Hgb 31.4 pg (27.0-32.0); Mean Corpuscular Volume 92.4 fL (80-94); Mean Platelet Vol. 9.2 fl (6.2-12.0); Monocyte# 0.47 X10^3/uL; Monocyte% 4.8 % (0-10); NRBC Flagged by Analyzer 0 % (0-5); Neutrophil % 78.8 % (47-70); Platelet Count 378 K/mm3 (150-450); RBC Distribution Width CV 13.5 % (11.6-14.6); RBC Distribution Width SD 46.3 fl (35.1-43.9); Red Blood Count 5.16 M/mm3 (4.6-6.2); White Blood Count 9.8 K/mm3 (4.4-11.0)
[2020-11-11 16:38] LABS: ALB/GLOB Ratio 1.2 RATIO (0.9-2.4); AST(SGOT) 30 U/L (15-37); Alanine Aminotransfer ALT/SGPT 11 U/L (16-61); Albumin, Serum 4.5 g/dL (3.2-5.0); Alkaline Phosphatase 89 U/L (45-117); Anion Gap 9 (5-15); BUN 16 mg/dL (7-18); BUN/Creat Ratio 17.9 RATIO (10-20); Calcium,Total 9.4 mg/dL (8.5-10.1); Chloride 98 mmol/L (98-107); EST Glomerular Filtration Rate 109 mL/min (>60); Est Glom Filt Rate - Afr Amer 132 mL/min (>60); Estimated Creatinine Clearance 114.53 ml/min; Globulin 3.7 g/dL (2.2-4.2); Glucose 92 mg/dL (74-106); Lipase 111 U/L (73-393); Potassium 4.2 mmol/L (3.5-5.1); Protein, Total 8.2 g/dL (6.4-8.2); Sodium Level 136 mmol/L (136-145)
== END 2020-11-11 17:16 | disposition home or self-care (01) ==
PROVIDERS: Emergency Provider Emergency Medicine; PCP Family Medicine
DX: R10.13 Epigastric pain (principal); R11.0 Nausea; F32.9 Major depressive disorder, single episode, unspecified; F41.9 Anxiety disorder, unspecified; Z79.899 Other long term (current) drug therapy; F17.290 Nicotine dependence, other tobacco product, uncomplicated
CPT/HCPCS: 80053; 83690; 85025; 96365; 96375; 99282; A4216; J2405; J3490

== ENCOUNTER 2021-06-27 13:48 | Emergency (ER) | payer SELFPAY ==
[2021-06-27 13:49] VITALS: BP 144/79; PULSE 104; RESP 16; TEMP 36; O2SAT 97; BMI 20.2
--- NOTE | 2021-06-27 14:08 | ED.VIS.GI ---
HPI HPI - GI History of Present Illness Chief Complaint: Nausea/Vomiting Informant: patient Abdominal Pain/Flank Pain Onset: Days (2-3) Context: Gradual Onset Timing: Continuous Quality: Cramping Location: Epigastric Worsened by: Food Relieved by: Nothing Nausea/Vomiting/Emesis GI Symptom: Positive for Nausea; Negative for Vomiting Diarrhea/Melena/Hematochezia GI Symptom: Negative for Diarrhea, Melena and Hematochezia Associated Symptoms Associated Symptoms: Negative for Dysuria, Frequency and Hematuria Narrative Narrative: Patient presents with nausea and abdominal pain that has been constant for the past 2 to 3 days. Patient states it gradually gets worse. Patient describes his pain is cramping. Patient states pain is over the epigastric area. Patient denies any vomiting. Patient denies any diarrhea, melena, or hematochezia. Patient states his pain is worse after eating. Patient states nothing makes his pain better. Patient denies any urinary complaints. PFS PFS Medical History Anxiety Depression Home Medications escitalopram oxalate 10 mg PO DAILY 06/27/21 [History Last Taken Unknown] omeprazole 20 mg PO DAILY #30 capsule 06/27/21 [Rx Last Taken Unknown] ondansetron 4 mg PO Q6H PRN #10 tab 06/27/21 [Rx Last Taken Unknown] Allergy/AdvReac Type Severity Reaction Status Date / Time venlafaxine [From Effexor] Allergy Other Verified 06/27/21 13:50 Surgical History no surgical history no surgical history Social History Smoking Status: Current some day smoker tobacco type: smokeless tobacco ROS ROS ED Constitutional Constitutional ED: Reports sweats; Denies chills or fever(s) Eyes Eyes: Denies blurry vision or change in vision ENT ENT ED: Denies rhinorrhea or sore throat Cardiovascular Cardiovascular: Denies chest pain or palpitations Respiratory/Chest Respiratory/Chest: Reports cough; Denies dyspnea Gastrointestinal Gastrointestinal: Reports abdominal pain and nausea; Denies diarrhea, melena or vomiting Genitourinary Genitourinary ED: Denies dysuria or hematuria Musculoskeletal Musculoskeletal: Denies back pain or neck pain Integumentary Denies abscess or rash Neurologic Neurologic: Denies headache(s) or weakness Allergic/Immunologic Allergic/Immunologic ED: Denies mouth swelling or urticaria EXAM Physical Exam Const Vital Signs: 06/27/21 13:49 Temperature 96.8 F L Temperature Source Temporal Pulse Rate 104 H Respiratory Rate 16 Blood Pressure 144/79 H Blood Pressure Mean 100 Pulse Ox 97 Oxygen Delivery Method Room Air Positive well nourished and well developed General Appearance ED: well developed HEENT Reports moist mucous membranes Neck supple and no JVD Resp normal respiratory effort and clear to auscultation bilaterally Cardio regular rate, regular rhythm and no murmurs GI normal to inspection, nondistended, normoactive bowel sounds Palpation: soft and tender epigastric; Negative for guarding or rebound tenderness present Extremity normal to inspection General Extremety ED: Negative for edema or tenderness General Extremity: Negative for edema Neuro oriented x3, CN's II-XII intact bilaterally and no sensory deficits noted Sensorium / Orientation: alert Motor Exam: strength 5/5 throughout Psych mental status grossly normal Skin no rashes or lesions noted MDM MDM MDM Narrative Medical decision making narrative: Patient was given IV fluids and Zofran here. Patient was given a GI cocktail. CBC was within normal limits. Comprehensive metabolic profile was essentially within normal limits. Lipase was normal. Patient is feeling somewhat better on reevaluation. Patient was advised of his findings. Patient was given a prescription for omeprazole. Patient was instructed to follow-up with his primary care physician in 5 to 7 days. Patient understood and was agreeable with the plan. All questions were answered. Lab Data Attestation: I reviewed the patient's lab results. Labs: Laboratory Results - last 24 hr 06/27/21 06/27/21 14:18 14:18 WBC 8.9 RBC 4.80 Hgb 15.8 Hct 46.6 MCV 97.1 H MCH 32.9 H MCHC 33.9 RDW Std Deviation 50.4 H RDW Coeff of Zahraa 13.9 Plt Count 317 MPV 9.1 Immature Gran % (Auto) 0.200 Neut % (Auto) 73.6 H Lymph % (Auto) 15.5 L [place] % (Auto) 8.7 Eos % (Auto) 1.6 Baso % (Auto) 0.4 Absolute Neuts (auto) 6.6 Absolute Lymphs (auto) 1.38 Nucleated RBC % 0 Sodium 139 Potassium 4.2 Chloride 106 Carbon Dioxide 31.0 Anion Gap 2 L BUN 14 Creatinine 0.91 Estim Creat Clear Calc 114.44 Est GFR (MDRD) Af Amer 128 Est GFR (MDRD) Non-Af 106 BUN/Creatinine Ratio 15.3 Glucose 101 Calcium 9.2 Total Bilirubin 0.50 AST 25 ALT 15 L Alkaline Phosphatase 88 Total Protein 7.7 Albumin 4.0 Globulin 3.7 Albumin/Globulin Ratio 1.1 Lipase 230 Discharge Plan Triage Chief Complaint: Nausea/Vomiting ED Provider: Shyam Koroma Dx/Rx/DC Orders Clinical Impression: Nausea and vomiting Instructions: ED Vomiting (Adult) Prescriptions: New omeprazole [omeprazole] 20 MG capsule 20 mg PO DAILY Qty: 30 RF: 0 Continued ondansetron 4 mg tablet,disintegrating 4 mg PO Q6H PRN (Reason: nausea and vomiting) Qty: 10 RF: 0 Discontinued pantoprazole [Protonix] 20 mg tablet,delayed release (DR/EC) 20 mg PO DAILY Qty: 30 RF: 0 No Action escitalopram oxalate 10 mg tablet 10 mg PO DAILY RF: 0 Stand Alone Forms: ED Work / School Excuse Primary Care Provider: Ha Mary Referrals: Ha Mary MD [Primary Care Provider] - 5-7 Days Disposition Disposition: Home, Self Care
[2021-06-27] MEDS: 0.9% Normal Saline 1,000 ML 1000 ML IV (14:20)
[2021-06-27] MEDS: Mag Hydrox/Al Hydrox/Simeth 30 ML UDC PO (14:20)
[2021-06-27] MEDS: Ondansetron 4 MG/2 ML Vial IV (14:20)
[2021-06-27 14:25] LABS: Absolute Lymphocyte Count 1.38 X10^3/uL (0.83-4.51); Absolute Neutrophil Count 6.6 X10^3/uL (2.0-7.7); Basophil# 0.04 X10^3/uL; Basophil% 0.4 % (0-1); Eosinophil# 0.14 X10^3/uL; Eosinophils% 1.6 % (0-5); Hematocrit 46.6 % (40-54); Hemoglobin 15.8 g/dL (13.0-16.5); Lymphocyte # 1.38 X10^3/ul (0.83-4.51); Lymphocyte % 15.5 % (19-41); Mean Corp Hgb Conc 33.9 g/dL (32-36); Mean Corpuscular Hgb 32.9 pg (27.0-32.0); Mean Corpuscular Volume 97.1 fL (80-94); Mean Platelet Vol. 9.1 fl (6.2-12.0); Monocyte# 0.78 X10^3/uL; Monocyte% 8.7 % (0-10); NRBC Flagged by Analyzer 0 % (0-5); Neutrophil # 6.56 X10^3/uL (2.7-7.7); Neutrophil % 73.6 % (47-70); Platelet Count 317 K/mm3 (150-450); RBC Distribution Width CV 13.9 % (11.6-14.6); RBC Distribution Width SD 50.4 fl (35.1-43.9); White Blood Count 8.9 K/mm3 (4.4-11.0)
[2021-06-27 14:42] LABS: ALB/GLOB Ratio 1.1 RATIO (0.9-2.4); AST(SGOT) 25 U/L (15-37); Alanine Aminotransfer ALT/SGPT 15 U/L (16-61); Alkaline Phosphatase 88 U/L (45-117); Anion Gap 2 (5-15); BUN 14 mg/dL (7-18); BUN/Creat Ratio 15.3 RATIO (10-20); Calcium,Total 9.2 mg/dL (8.5-10.1); Chloride 106 mmol/L (98-107); Creatinine, Serum 0.91 mg/dL (0.70-1.30); EST Glomerular Filtration Rate 106 mL/min (>60); Est Glom Filt Rate - Afr Amer 128 mL/min (>60); Estimated Creatinine Clearance 114.44 ml/min; Globulin 3.7 g/dL (2.2-4.2); Glucose 101 mg/dL (74-106); Lipase 230 U/L (73-393); Potassium 4.2 mmol/L (3.5-5.1); Protein, Total 7.7 g/dL (6.4-8.2); Sodium Level 139 mmol/L (136-145)
[2021-06-27 15:25] VITALS: BP 124/78; PULSE 66; RESP 14; TEMP 36.9; O2SAT 99
== END 2021-06-27 15:34 | disposition home or self-care (01) ==
PROVIDERS: Emergency Provider Emergency Medicine; PCP Family Medicine; Visit Provider Emergency Medicine
DX: R11.2 Nausea with vomiting, unspecified (principal); R10.13 Epigastric pain; F17.220 Nicotine dependence, chewing tobacco, uncomplicated; F32.9 Major depressive disorder, single episode, unspecified; F41.9 Anxiety disorder, unspecified; Z79.899 Other long term (current) drug therapy
CPT/HCPCS: 80053; 83690; 85025; 96361; 96374; 99284; J7030; A4216; J2405

== ENCOUNTER 2021-08-13 08:04 | Observation (INO) | payer SELFPAY ==
[2021-08-13] VITALS (8 sets, daily range): BP systolic 91–135; BP diastolic 59–84; PULSE 73–118; RESP 12–18; TEMP 36.5–36.8; O2SAT 97–98; BMI 23.0; BMI 23.1
--- NOTE | 2021-08-13 08:32 | EX.ED.DYSGE1 ---
HPI History of Present Illness Chief Complaint: Seizure Narrative Narrative: 26-year-old male presenting after having seizures last evening. Patient states he has had seizure disorder in the past when he was a child but he was never medicated. He has not had seizures in years. He reports that he has been sleep deprived due to having a new child, heavy work schedule. He also states he is stressed because he is a CPS case against him for his new child. He states he has been having to fill paperwork for this. Patient states that last evening he was witnessed to have 4 seizures which lasted a few minutes and he was postictal afterwards. Patient has not had any head trauma. No fever or neck pain. Before this she was otherwise well. He reports mild jitteriness currently. [facility] Medical History Anxiety Depression Seizures Home Medications escitalopram oxalate 10 mg PO DAILY 06/27/21 [History Last Taken Unknown] Allergy/AdvReac Type Severity Reaction Status Date / Time venlafaxine [From Effexor] Allergy Other Verified 08/13/21 08:05 Family History (Updated 08/13/21 @ 11:31 by Yesenia Edwards) Mother Heart disease Social History Smoking Status: Current some day smoker tobacco type: smokeless tobacco ROS ROS ED Constitutional Constitutional ED: Denies chills, fever(s) or sweats Eyes Eyes: Denies blurry vision or diplopia ENT ENT ED: Denies rhinorrhea or sore throat Cardiovascular Cardiovascular: Denies chest pain or palpitations Respiratory/Chest Respiratory/Chest: Denies cough or dyspnea Gastrointestinal Gastrointestinal: Denies abdominal pain, nausea or vomiting Genitourinary Genitourinary ED: Denies dysuria or hematuria Musculoskeletal Musculoskeletal: Denies arthralgias, back pain, myalgias or neck pain Integumentary Denies rash Neurologic Neurologic: Reports headache(s) and other; Denies paresthesias or weakness EXAM Physical Exam Const Vital Signs: 08/13/21 08:05 Temperature 97.8 F Temperature Source Temporal Pulse Rate 80 Respiratory Rate 16 Blood Pressure 135/84 H Blood Pressure Mean 101 Pulse Ox 97 Oxygen Delivery Method Room Air Positive well nourished General Appearance ED: NAD; Negative for pallor HEENT Reports moist mucous membranes Negative for trauma Eyes PERRL and EOMs intact bilaterally Chest Wall inspection of chest normal Resp normal respiratory effort and clear to auscultation bilaterally Cardio regular rate and regular rhythm GI normal to inspection, nondistended, normoactive bowel sounds Extremity normal to inspection General Extremety ED: Negative for edema or tenderness General Extremity: Negative for edema Neuro oriented x3, CN's II-XII intact bilaterally and no sensory deficits noted Sensorium / Orientation: alert Motor Exam: strength 5/5 throughout Psych mental status grossly normal Skin General Skin Exam: Negative for jaundice or pallor MDM MDM MDM Narrative Medical decision making narrative: Presenting with 4 seizures prior to arrival. Has had seizures and at least 22 years. He states that these were stress-induced seizures. Patient is not on any medication. He does express to me that he has under a lot of stress due to a CPS case, working more, new child, sleep deprivation. He has not had a seizure in hours. I obtain basic lab work which is normal. TSH is normal. Urine drug screen negative. Urinalysis negative. CT brain negative for acute abnormality. I obtained an SOC consult who recommended that I admit the patient for EEG and MRI. The recommendation was to give 1 g of Keppra IV and then 500 mg of Keppra twice daily. This was discussed with the hospitalist and he did accept admission. Patient stable on transfer to the floor. Impression: 1. Seizures Lab Data Labs: Laboratory Results - last 24 hr 08/13/21 08/13/21 08/13/21 08:49 08:49 10:13 WBC 6.0 RBC 4.53 L Hgb 14.7 Hct 43.6 MCV 96.2 H MCH 32.5 H MCHC 33.7 RDW Std Deviation 46.5 H RDW Coeff of Zahraa 12.9 Plt Count 346 MPV 9.3 Immature Gran % (Auto) 0.500 Neut % (Auto) 60.4 Lymph % (Auto) 27.4 [place] % (Auto) 6.7 Eos % (Auto) 4.3 Baso % (Auto) 0.7 Absolute Neuts (auto) 3.6 Absolute Lymphs (auto) 1.64 Nucleated RBC % 0 Sodium 136 Potassium 4.1 Chloride 104 Carbon Dioxide 28.0 Anion Gap 4 L BUN 15 Creatinine 0.86 Estim Creat Clear Calc 136.51 Est GFR (MDRD) Af Amer 136 Est GFR (MDRD) Non-Af 113 BUN/Creatinine Ratio 17.4 Glucose 99 Calcium 8.2 L Magnesium 2.2 Total Bilirubin 0.30 AST 26 ALT 18 Alkaline Phosphatase 69 Total Protein 7.2 Albumin 3.8 Globulin 3.4 Albumin/Globulin Ratio 1.1 TSH 1.50 Urine Color Urine Clarity Urine pH Ur Specific [place] Urine Protein Urine Glucose (UA) Urine Ketones Urine Occult Blood Urine Nitrite Urine Bilirubin Urine Urobilinogen Ur Leukocyte Esterase Urine RBC Urine WBC Ur Squamous Epith Cells Urine Bacteria Urine Mucus Urine Opiates Screen NEGATIVE Urine Methadone Screen NEGATIVE Ur Barbiturates Screen NEGATIVE Ur Phencyclidine Scrn NEGATIVE Ur Amphetamines Screen NEGATIVE MDMA (Ecstasy) Screen NEGATIVE U Benzodiazepines Scrn NEGATIVE Urine Cocaine Screen NEGATIVE U Cannabinoids Screen NEGATIVE Ur Drug Screen Comment 08/13/21 10:15 WBC RBC Hgb Hct MCV MCH MCHC RDW Std Deviation RDW Coeff of Zahraa Plt Count MPV Immature Gran % (Auto) Neut % (Auto) Lymph % (Auto) [place] % (Auto) Eos % (Auto) Baso % (Auto) Absolute Neuts (auto) Absolute Lymphs (auto) Nucleated RBC % Sodium Potassium Chloride Carbon Dioxide Anion Gap BUN Creatinine Estim Creat Clear Calc Est GFR (MDRD) Af Amer Est GFR (MDRD) Non-Af BUN/Creatinine Ratio Glucose Calcium Magnesium Total Bilirubin AST ALT Alkaline Phosphatase Total Protein Albumin Globulin Albumin/Globulin Ratio TSH Urine Color Yellow Urine Clarity Clear Urine pH 6.5 Ur Specific [place] 1.010 Urine Protein Negative Urine Glucose (UA) Normal Urine Ketones Negative Urine Occult Blood Negative Urine Nitrite Negative Urine Bilirubin Negative Urine Urobilinogen Normal Ur Leukocyte Esterase Negative Urine RBC 0 SEEN Urine WBC 0 SEEN Ur Squamous Epith Cells 0 SEEN Urine Bacteria 0 SEEN Urine Mucus 0 SEEN Urine Opiates Screen Urine Methadone Screen Ur Barbiturates Screen Ur Phencyclidine Scrn Ur Amphetamines Screen MDMA (Ecstasy) Screen U Benzodiazepines Scrn Urine Cocaine Screen U Cannabinoids Screen Ur Drug Screen Comment Radiography Diagnostic Testing: Clinical Impression(s) from Imaging Studies Brain CT 08/13/21 08:58 IMPRESSION: Normal unenhanced CT scan of the brain. Electronically Signed: Raymond Ward MD at 9:45 EDT , Discharge Plan Triage Chief Complaint: Seizure ED Provider: Timoteo Katz Dx/Rx/DC Orders Primary Care Provider: Ha Mary Disposition Discharge Date/Time: 08/13/21 11:03
[2021-08-13] MEDS: 0.9% Normal Saline 1,000 ML 1000 ML IV (08:46)
[2021-08-13 08:57] LABS: Absolute Lymphocyte Count 1.64 X10^3/uL (0.83-4.51); Absolute Neutrophil Count 3.6 X10^3/uL (2.0-7.7); Basophil# 0.04 X10^3/uL; Basophil% 0.7 % (0-1); Eosinophil# 0.26 X10^3/uL; Eosinophils% 4.3 % (0-5); Hematocrit 43.6 % (40-54); Hemoglobin 14.7 g/dL (13.0-16.5); Lymphocyte # 1.64 X10^3/ul (0.83-4.51); Lymphocyte % 27.4 % (19-41); Mean Corp Hgb Conc 33.7 g/dL (32-36); Mean Corpuscular Hgb 32.5 pg (27.0-32.0); Mean Corpuscular Volume 96.2 fL (80-94); Mean Platelet Vol. 9.3 fl (6.2-12.0); Monocyte% 6.7 % (0-10); NRBC Flagged by Analyzer 0 % (0-5); Neutrophil # 3.61 X10^3/uL (2.7-7.7); Neutrophil % 60.4 % (47-70); Platelet Count 346 K/mm3 (150-450); RBC Distribution Width CV 12.9 % (11.6-14.6); RBC Distribution Width SD 46.5 fl (35.1-43.9); Red Blood Count 4.53 M/mm3 (4.6-6.2)
--- NOTE | 2021-08-13 08:58 | CT_ITS ---
STUDY: CT BRAIN WITHOUT CONTRAST REASON FOR EXAM: Male, 26 years old. seizure RADIATION DOSAGE (If Supplied By Facility): CTDIvol = ( 44.99 ) mGy, DLP = ( 779.24 ) mGycm TECHNIQUE: Transaxial CT imaging of the brain was performed without administration of intravenous contrast material. Individualized dose optimization techniques were used for this CT. COMPARISON: Comparison is made with prior study dated 01/23/2011. FINDINGS: Normal soft tissue structures. Normal calvarium. Normal size ventricles and extra-axial spaces for the patient''s age. Normal white matter tracts of the cerebral hemispheres. Normal basal ganglia and thalami. Normal brainstem. Normal cerebellum. There is no intracranial hemorrhage. There are no findings of an acute ischemic infarction. Normal visualized paranasal sinuses. CT/Brain/Head without Contrast IMPRESSION: Normal unenhanced CT scan of the brain. Electronically Signed: Raymond Ward MD at 9:45 EDT ,
[2021-08-13 09:22] LABS: ALB/GLOB Ratio 1.1 RATIO (0.9-2.4); AST(SGOT) 26 U/L (15-37); Alanine Aminotransfer ALT/SGPT 18 U/L (16-61); Albumin, Serum 3.8 g/dL (3.2-5.0); Alkaline Phosphatase 69 U/L (45-117); Anion Gap 4 (5-15); BUN 15 mg/dL (7-18); BUN/Creat Ratio 17.4 RATIO (10-20); Calcium,Total 8.2 mg/dL (8.5-10.1); Chloride 104 mmol/L (98-107); Creatinine, Serum 0.86 mg/dL (0.70-1.30); EST Glomerular Filtration Rate 113 mL/min (>60); Est Glom Filt Rate - Afr Amer 136 mL/min (>60); Estimated Creatinine Clearance 136.51 ml/min; Globulin 3.4 g/dL (2.2-4.2); Glucose 99 mg/dL (74-106); Magnesium 2.2 mg/dL (1.6-2.6); Potassium 4.1 mmol/L (3.5-5.1); Protein, Total 7.2 g/dL (6.4-8.2); Sodium Level 136 mmol/L (136-145)
--- NOTE | 2021-08-13 10:30 | NURSING ---
PCU OBS TERELETSKY SEIZURE
[2021-08-13 10:34] LABS: Amphetamine Urine VISTA NEGATIVE (<1000 ng/mL); Barbiturate Urine VISTA NEGATIVE (< 200 ng/mL); Benzodiazepine Urine VISTA NEGATIVE (< 200 ng/mL); Cocaine Urine VISTA NEGATIVE (< 300 ng/mL); Ecstacy Urine VISTA NEGATIVE (< 500 ng/mL); Methadone Urine VISTA NEGATIVE (< 300 ng/mL); PCP Urine VISTA NEGATIVE (< 25 ng/mL); THC Urine VISTA NEGATIVE (< 50 ng/mL); Vista UDS pH Range 6
[2021-08-13] MEDS: levETIRAcetam IV 1,000 MG/100 ML BAG 400 MG IV (10:45)
[2021-08-13 10:53] LABS: Bacteria 0 SEEN /hpf (None Seen); Mucous, Urine 0 SEEN /hpf (<or=2+); Red Blood Cells-Urine 0 SEEN /hpf (0-5); Squamous Epithelial Cells - UA 0 SEEN /hpf (0-5); White Blood Cells 0 SEEN /hpf (0-5)
[2021-08-13 10:55] LABS: Color, Urine Yellow (Yellow); Glucose, Dipstick Normal (Normal); Ketone-Dipstick Negative (Negative); Leukocyte Esterase-Dipstick Negative /ul (Negative); Nitrite-Dipstick Negative (Negative); Occult Blood-Urine Negative /ul (Negative); Protein-Dipstick Negative (Negative); Urine Bilirubin Dipstick Negative (Negative); Urine Clarity Clear (Clear); Urine Urobilinogen Normal (Normal); Urine pH 6.5 (5.0 - 8.0)
--- NOTE | 2021-08-13 11:57 | MRI_ITS ---
EXAM: MR HEAD WITHOUT AND WITH INTRAVENOUS CONTRAST CLINICAL INDICATION: seizure- no meds hasn''t had one since age 5 yrs TECHNIQUE: Multiplanar and multisequence MR images of the brain were obtained without and with intravenous contrast. This report was created using [employer] report generation technology. CONTRAST: IV 15ml Dotarem COMPARISON: None. FINDINGS: BRAIN AND EXTRA-AXIAL SPACES: No focal signal abnormalities throughout the brain parenchyma. No abnormal enhancing lesions intraaxially and extra-axially. Normal ventricles and cisterns. Minimal asymmetry of the temporal horns of the lateral ventricles, right side is slightly more dilated. Normal ventricles and cisterns. No neuronal migrational disorders No intrinsic signal abnormality of the limbic lobes. No intra- or extra-axial hemorrhage. No intracranial mass or mass effect. Normal fisher matter and white matter. Posterior fossa structures are normal. No hydrocephalus. SELLA: Unremarkable. Normal sella turcica, pituitary gland, infundibular stalk, optic chiasm and hypothalamus. AUDITORY SYSTEM: Unremarkable. The internal auditory canals are patent. BONES/JOINTS: Unremarkable. No discrete lytic or blastic abnormalities. SINUSES: Unremarkable as visualized. Clear. MASTOID AIR CELLS: Unremarkable as visualized. Clear. ORBITS: Unremarkable as visualized. Both globes, extraocular muscles, optic nerves and retrobulbar fat appear unremarkable. VASCULATURE: Unremarkable as visualized. Normal flow voids in the major intracranial circulation. MRI/Brain W/WO Contrast IMPRESSION: Normal MRI brain with and without contrast. Electronically Signed: Gustavo Louis MD at 15:27 EDT ,
--- NOTE | 2021-08-13 13:26 | TELEMED_ITS ---
SOC Telemed has confirmed receipt of a request for visit. This document confirms receipt of the order initiating the consult. To find the results of the consultation, please view the patient's reports for the scanned Telemed Consult.
--- NOTE | 2021-08-13 18:38 | PCM.HP.STD ---
HPI - General General Date of Admission: 08/13/21 Date of Service: 08/13/21 Chief Complaint: Seizures HPI Narrative CANDELARIO NIETO, is a 26 M who presents to the emergency room at [facility] with a chief complaint of having several seizures at home starting at 5 PM yesterday. Patient states the seizures were witnessed by his girlfriend who stated that he was confused afterwards. Patient came in for evaluation in the emergency room today. Patient states he has a past history of seizures when he was approximately 5 years old but is not treated with medication at that time. Patient denies any head trauma, he denies any other medical problems except for chronic depression/anxiety. Work-up in the emergency room included a CT of the head which showed no abnormality, patient's labs were unremarkable including a tox screen. Teleneurology was contacted, they advised that the patient be given IV Keppra, admitted to the hospital, undergo an MRI and EEG. Patient was placed into observation status on PCU for seizure disorder. [facility] Medical History (Updated 08/13/21 @ 18:[address] Bryce Crenshaw, ) Anxiety Depression Seizures Home Medications escitalopram oxalate 10 mg PO DAILY 06/27/21 [History Last Taken Unknown] Allergy/AdvReac Type Severity Reaction Status Date / Time venlafaxine [From Effexor] Allergy Other Verified 08/13/21 08:05 Family History (Updated 08/13/21 @ 11:31 by Yesenia Edwards) Mother Heart disease Surgical History no surgical history Social History Smoking Status: Current some day smoker tobacco type: smokeless tobacco ROS Constitutional Constitutional: Denies anorexia, change in weight, fever(s), night sweats or weakness Eyes Eyes: Denies blurry vision, change in vision, discharge from eye(s) or eye pain Cardiovascular Cardiovascular: Denies chest pain, claudication, edema or palpitations Respiratory/Chest Respiratory/Chest: Denies cough, hemoptysis, shortness of breath at rest or shortness of breath with exertion Gastrointestinal Gastrointestinal: Denies abdominal pain, constipation, diarrhea, hematemesis, hematochezia, melena, nausea or vomiting Genitourinary Genitourinary: Denies dysuria, hematuria, urinary frequency, urinary hesitancy, urinary incontinence or urinary urgency Musculoskeletal Musculoskeletal: Denies back pain, joint pain, joint stiffness, joint swelling, myalgias or neck pain Neurologic Neurologic: Reports seizures; Denies abnormal gait, abnormal speech, dizziness, focal weakness, headache(s), loss of vision, numbness, other visual disturbances, paresthesias, syncope or tingling Psychiatric Psychiatric: Reports anxiety and depression; Denies cognitive impairment, irritability, mood swings or suicidal ideation Endocrine Endocrinology: Denies change in body appearance, cold intolerance, excessive sweating, heat intolerance, polydipsia or polyuria Hematologic/Lymphatic Hematologic/Lymphatic: Denies none, anemia, easy bleeding, easy bruising or lymphadenopathy Allergic/Immunologic Allergic/Immunologic: Denies rhinitis, urticaria, eczemia or asthma Vital Signs Vital Signs Vital Signs: 08/13/21 08:05 08/13/21 10:38 08/13/21 11:23 Temperature 97.8 F 97.8 F 98.3 F Temperature Source Temporal Temporal Oral Pulse Rate 80 81 78 Respiratory Rate 16 16 12 Blood Pressure 135/84 H 91/59 L 125/78 H Blood Pressure Mean 101 69 93 Blood Pressure Source Monitor Blood Pressure Position Semi-Fowlers Blood Pressure Location Right Arm Pulse Ox 97 98 Oxygen Delivery Method Room Air Room Air 08/13/21 11:56 08/13/21 14:03 08/13/21 16:38 Temperature 98.2 F Temperature Source Oral Pulse Rate 75 79 73 Respiratory Rate 12 Blood Pressure 114/76 Blood Pressure Mean 88 Blood Pressure Source Monitor Blood Pressure Position Semi-Fowlers Blood Pressure Location Right Arm Pulse Ox 98 Oxygen Delivery Method Room Air Weight Weight: 75.41 kg Body Mass Index (BMI) 23.1 Physical Exam Const alert, oriented x3, no apparent distress and healthy appearing General Appearance: cooperative, well kempt and well developed Orientation / Consciousness: awake, oriented to person, oriented to place and oriented to time HEENT normocephalic, head/scalp atraumatic, hearing grossly normal bilaterally and moist oral mucous membranes Eyes PERRL, EOMs intact bilaterally and conjunctivae normal Neck nuchal rigidity, supple, no JVD, thyroid normal and no carotid bruits General: trachea midline Resp normal respiratory effort, no retractions, no use of accessory muscles and clear to auscultation bilaterally Auscultation: Negative for rales, rhonchi or wheezes Cardio regular rate, regular rhythm, S1 normal heart sound, S2 normal heart sound, no murmurs, no rub and no gallops GI normal to inspection, nondistended, normoactive bowel sounds, soft to palpation, non-tender and non-distended Extremity no clubbing, cyanosis or edema Skin no rashes or lesions noted General Skin Exam: no breakdown Neuro oriented x3, CN's II-XII intact bilaterally, no focal motor deficits and no sensory deficits noted Sensorium / Orientation: awake and alert Speech: speech normal Psych affect normal Results Lab / Micro Data Result Diagrams: 08/13/21 08:49 08/13/21 08:49 Labs: Laboratory Results - last 24 hr 08/13/21 08:49: WBC 6.0, RBC 4.53 L, Hgb 14.7, Hct 43.6, MCV 96.2 H, MCH 32.5 H, MCHC 33.7, RDW Std Deviation 46.5 H, RDW Coeff of Zahraa 12.9, Plt Count 346, MPV 9.3, Immature Gran % (Auto) 0.500, Neut % (Auto) 60.4, Lymph % (Auto) 27.4, [place] % (Auto) 6.7, Eos % (Auto) 4.3, Baso % (Auto) 0.7, Absolute Neuts (auto) 3.6, Absolute Lymphs (auto) 1.64, Nucleated RBC % 0 08/13/21 08:49: Sodium 136, Potassium 4.1, Chloride 104, Carbon Dioxide 28.0, Anion Gap 4 L, BUN 15, Creatinine 0.86, Estim Creat Clear Calc 136.51, Est GFR (MDRD) Af Amer 136, Est GFR (MDRD) Non-Af 113, BUN/Creatinine Ratio 17.4, Glucose 99, Calcium 8.2 L, Magnesium 2.2, Total Bilirubin 0.30, AST 26, ALT 18, Alkaline Phosphatase 69, Total Protein 7.2, Albumin 3.8, Globulin 3.4, Albumin/Globulin Ratio 1.1, TSH 1.50 08/13/21 10:13: Urine Opiates Screen NEGATIVE, Urine Methadone Screen NEGATIVE, Ur Barbiturates Screen NEGATIVE, Ur Phencyclidine Scrn NEGATIVE, Ur Amphetamines Screen NEGATIVE, MDMA (Ecstasy) Screen NEGATIVE, U Benzodiazepines Scrn NEGATIVE, Urine Cocaine Screen NEGATIVE, U Cannabinoids Screen NEGATIVE, Ur Drug Screen Comment 08/13/21 10:15: Urine Color Yellow, Urine Clarity Clear, Urine pH 6.5, Ur Specific [place] 1.010, Urine Protein Negative, Urine Glucose (UA) Normal, Urine Ketones Negative, Urine Occult Blood Negative, Urine Nitrite Negative, Urine Bilirubin Negative, Urine Urobilinogen Normal, Ur Leukocyte Esterase Negative, Urine RBC 0 SEEN, Urine WBC 0 SEEN, Ur Squamous Epith Cells 0 SEEN, Urine Bacteria 0 SEEN, Urine Mucus 0 SEEN Radiology Impression Brain CT 08/13/21 08:58 IMPRESSION: Normal unenhanced CT scan of the brain. Electronically Signed: Raymond Ward MD at 9:45 EDT , Brain MRI 08/13/21 11:57 IMPRESSION: Normal MRI brain with and without contrast. Electronically Signed: Gustavo Louis MD at 15:27 EDT , Assessment & Plan Assessment/Plan (1) Seizures: PLAN: 1. New onset seizure disorder-patient will be placed in observation status on PCU, he will undergo an EEG, and MRI, and be maintained on IV Keppra. I cautioned the patient about not driving for the next 6 months. #2 chronic depression/anxiety-patient is on Lexapro Charges/Coding Visit Charges OBSV E&M: 38213 Initial observation care L3
[2021-08-13] MEDS: 0.9% Saline Lock 10 ML Syringe IV (21:12)
[2021-08-14 03:11] VITALS: BP 111/71; PULSE 80; RESP 18; TEMP 36.4; O2SAT 98
[2021-08-14 03:25] VITALS: PULSE 53
[2021-08-14 07:32] VITALS: PULSE 66
[2021-08-14 09:01] VITALS: BP 117/80; PULSE 80; RESP 16; TEMP 37.1; O2SAT 98
--- NOTE | 2021-08-14 09:01 | PCM.DC ---
Discharge Instructions Diet Discharge Diet: No restrictions Activity Discharge Activity: Return to Normal Activity Additional Activity Instructions:: Do not drive until cleared by your physician Follow Up Care Test Results: Test results from this visit will be discussed in further detail at your follow-up appointment, if applicable. Discharge Plan Admission Admit Date/Time: 08/13/21 10:30 Primary Reason for Your Visit: seizure Attending Provider: Bryce Crenshaw Primary Care Provider: Ha Mary Discharge Orders/Prescriptions Prescriptions: New levetiracetam [Keppra] 500 mg tablet 500 mg PO BID Qty: 60 RF: 1 Continued escitalopram oxalate 10 mg tablet 10 mg PO DAILY RF: 0 Referrals / Follow Up: Ha Mary MD [Primary Care Provider] - Within 2 Weeks Disposition Disposition (needs filled in before D/C Order can be placed): Home, Self Care
--- NOTE | 2021-08-14 12:05 | PCM.DC.SUM ---
Providers Date of Admission: 08/13/21 Date of Discharge: 08/14/21 Primary Care Physician: Dr. Ha Mary MD Reason For Visit: SEIZURE Diagnosis Discharge Diagnosis (1) Seizures: Status: Acute Code(s): R56.9 - Unspecified convulsions Plan: 1. New onset seizure disorder #2 chronic depression Medications at Discharge Home Medications escitalopram oxalate 10 mg PO DAILY 06/27/21 levetiracetam [Keppra] 500 mg PO BID #60 tab 08/14/21 Hospital Course Operations None Procedures Electroencephalogram Summary of Care Provided Minutes Spent on Discharge: 31 Hospital Course: This 26-year-old white male was seen in the emergency room with complaints of seizure activity which is started the day before, he related to 4 episodes of seizure activity which was witnessed by his girlfriend. Patient had no chronic seizure disorder, he stated that at 5 years of age he had a seizure but was not placed on medication. Work-up in the emergency room including a CT of the head was unremarkable, patient was seen by teleneurology who advised admission to the hospital with MRI and EEG to be obtained. Patient was placed in observation status on PCU, he was placed on IV Keppra, he underwent an MRI of the brain with contrast that was unremarkable, he had an EEG performed which did not show any abnormality. On 08/14/2021, patient was seen and examined: On examination he appeared in good health and spirits. Vital signs as documented. Skin warm and dry and without overt rashes. Neck without JVD, neck was supple, trachea midline, thyroid was normal. Lungs clear bilaterally, normal air movement was noted. Heart exam notable for regular rhythm, normal sounds and absence of murmurs, rubs or gallops. Abdomen unremarkable and without evidence of organomegaly, masses, or abdominal aortic enlargement. Bowel sounds are present, abdomen is not distended. Extremities nonedematous, no cyanosis was noted, no clubbing was noted. Neuro: Cranial nerves II through XII are grossly intact, no focal motor deficits were noted, sensation to light touch and pinprick intact, motor exam 5/5 throughout. Psych: Patient is alert and oriented x3, he does not appear anxious or depressed, he does not appear agitated. He appeared to be stable for discharge on 08/14/2021, his hospital course was discussed with his PCP Dr. Aditya Mary by phone on 08/14/2021. Patient was cautioned not to drive until he was cleared by his PCP. Weight / BMI Weight Weight: 75.41 kg Body Mass Index (BMI) 23.1 ABG / Lab / Microbiology Data Result Diagrams: 08/13/21 08:49 08/13/21 08:49 Radiography Diagnostic Testing: Radiology Impression Brain MRI 08/13/21 11:57 IMPRESSION: Normal MRI brain with and without contrast. Electronically Signed: Gustavo Louis MD at 15:27 EDT , D/C Instructions Discharge Diet: No restrictions Additional Activity Instructions: Do not drive until cleared by your physician Meaningful Use Info Meaningful Use Diagnoses (Choose all that apply): None applicable Discharge Plan Admission Admit Date/Time: 08/13/21 10:30 Primary Reason for Your Visit: seizure Attending Provider: Bryce Crenshaw Primary Care Provider: Ha Mary Discharge Orders/Prescriptions Prescriptions: New levetiracetam [Keppra] 500 mg tablet 500 mg PO BID Qty: 60 RF: 1 Continued escitalopram oxalate 10 mg tablet 10 mg PO DAILY RF: 0 Referrals / Follow Up: Ha Mary MD [Primary Care Provider] - Within 2 Weeks Disposition Disposition (needs filled in before D/C Order can be placed): Home, Self Care Charges/Coding Visit Charges OBSV E&M: 61200 Observation care discharge
== END 2021-08-14 09:04 | disposition home or self-care (01) ==
LOC: ED 09:06 → PCU 11:03
PROVIDERS: Admitting Provider Internal Medicine; Emergency Provider Student in an Organized Health Care Education/Training Program; PCP Family Medicine; Visit Provider Internal Medicine
DX: G40.909 Epilepsy, unspecified, not intractable, without status epilepticus (principal); F17.220 Nicotine dependence, chewing tobacco, uncomplicated; F32.A Depression, unspecified; Z79.899 Other long term (current) drug therapy; F41.9 Anxiety disorder, unspecified
CPT/HCPCS: 70450; 70553; 80053; 80307; 81001; 83735; 84443; 85025; 95819; 96361; 96365; 96366; 99218; 99284; 99406; A9575; J7030; A4216; G0378

== ENCOUNTER 2022-10-28 10:04 | Emergency (ER) | payer BC, MEDICAID, SELFPAY ==
[2022-10-28 10:07] VITALS: BP 129/87; PULSE 76; RESP 16; TEMP 36.4; O2SAT 99; BMI 23.6
--- NOTE | 2022-10-28 10:27 | RAD_ITS ---
INDICATION: chest pain EXAMINATION/TECHNIQUE: X-RAY - XR Chest 1 View COMPARISON: December 29, 2019 FINDINGS: LINES/DEVICES: None. LUNGS: No consolidation, edema or effusion. No pneumothorax. MEDIASTINUM AND CARDIOVASCULAR STRUCTURES: Cardiac silhouette not enlarged. Central airways and mediastinal contour are unremarkable. BONES AND SOFT TISSUES: Unremarkable. RAD/Chest 1 View (Portable) IMPRESSION: No radiographic evidence of acute cardiopulmonary disease. Electronically Signed: Donna Velasquez MD at 11:16 EDT ,
[2022-10-28] MEDS: Aspirin 81 MG TAB.CHEW 324 MG PO (10:52)
[2022-10-28 11:04] LABS: Absolute Lymphocyte Count 2.07 X10^3/uL (0.83-4.51); Absolute Neutrophil Count 6.4 X10^3/uL (2.0-7.7); Basophil# 0.05 X10^3/uL; Basophil% 0.5 % (0-1); Eosinophil# 0.22 X10^3/uL; Eosinophils% 2.4 % (0-5); Hematocrit 44.8 % (40-54); Hemoglobin 15.1 g/dL (13.0-16.5); Lymphocyte # 2.07 X10^3/ul (0.83-4.51); Lymphocyte % 22.4 % (19-41); Mean Corp Hgb Conc 33.7 g/dL (32-36); Mean Corpuscular Hgb 32.5 pg (27.0-32.0); Mean Corpuscular Volume 96.6 fL (80-94); Mean Platelet Vol. 9.2 fl (6.2-12.0); Monocyte# 0.48 X10^3/uL; Monocyte% 5.2 % (0-10); NRBC Flagged by Analyzer 0 % (0-5); Neutrophil % 69.1 % (47-70); Platelet Count 346 K/mm3 (150-450); RBC Distribution Width SD 46.4 fl (35.1-43.9); Red Blood Count 4.64 M/mm3 (4.6-6.2); White Blood Count 9.3 K/mm3 (4.4-11.0)
--- NOTE | 2022-10-28 11:06 | EDS_ITS ---
HPI History of Present Illness Chief Complaint: Chest Other Narrative Narrative: 27-year-old male presenting with chest discomfort, cough, congestion. He states that it feels kind of tight. He points to his anterior chest. He states that last night he had a couple of breakthrough seizures witnessed by his significant other. He was in bed when this happened. He states he has been on Keppra since the previous admission for seizure at [facility]. He states that he has never been referred to a neurologist. His primary care has been giving him Keppra. He states he had not had any breakthrough seizures. He thinks are stress related and he is under a lot of stress currently. His significant other described as tonic-clonic. [facility] Medical History Anxiety Depression Seizures Home Medications escitalopram oxalate 10 mg tablet 10 mg PO DAILY depression 06/27/21 [History Last Taken Unknown] levetiracetam 500 mg tablet (Keppra) 500 mg PO BID #60 tabs 08/14/21 [Rx Last Taken Unknown] Allergy/AdvReac Type Severity Reaction Status Date / Time venlafaxine [From Effexor] Allergy Other Verified 10/28/22 10:10 Family History Mother Heart disease Social History Smoking Status: Current some day smoker tobacco type: cigarettes and smokeless tobacco ROS ROS ED Review of Systems ROS Unobtainable: Denies due to encephalopathy Constitutional Constitutional ED: Denies chills or fever(s) Eyes Eyes: Denies none, blurry vision or change in vision ENT ENT ED: Denies rhinorrhea, sore throat or other Cardiovascular Cardiovascular: Reports as per HPI Respiratory/Chest Respiratory/Chest: Reports cough; Denies dyspnea Gastrointestinal Gastrointestinal: Denies abdominal pain, nausea or vomiting Genitourinary Genitourinary ED: Denies dysuria or hematuria Musculoskeletal Musculoskeletal: Denies arthralgias Integumentary Denies abscess Neurologic Neurologic: Denies headache(s) or paresthesias Psychiatric Psychiatric: Denies anxiety EXAM Physical Exam Const Vital Signs: 10/28/22 10:07 10/28/22 10:48 Temperature 97.5 F L Temperature Source Temporal Pulse Rate 76 Respiratory Rate 16 Blood Pressure 129/87 H Blood Pressure Mean 101 Pulse Ox 99 Oxygen Delivery Method Room Air Room Air Positive well developed General Appearance ED: well developed HEENT Reports moist mucous membranes normocephalic Eyes PERRL and EOMs intact bilaterally Chest Wall inspection of chest normal and palpation of chest normal Resp normal respiratory effort and clear to auscultation bilaterally Auscultation: Negative for rales, rhonchi or wheezes Cardio regular rate and regular rhythm GI normal to inspection, nondistended, normoactive bowel sounds Neuro oriented x3 and CN's II-XII intact bilaterally Sensorium / Orientation: awake Psych mental status grossly normal Skin no rashes or lesions noted Heart Score History: Slightly/Non-Suspicious ECG: Normal Age: </= 45 years Risk Factors: No Risk Factors Troponin: </= Normal Limit Score: 0 MDM MDM MDM Narrative Medical decision making narrative: Patient presenting status post breakthrough seizures yesterday. He states he had 2. He states that his seizures are stress related and he has been under a lot of stress recently. He is awake and alert in no acute distress. He does not have a headache, visual changes, slurred speech. He is chief complaint is of chest tightness which has been present since yesterday. He also states he feels like he is short of breath when he is talking. No fevers or chills. He did not fall from the bed when he was seizing. He states has been taking his Keppra and has not missed any doses. Differential includes but is not limited to ACS,pneumonia, pneumothorax, muscle strain, costochondritis. Considered PE however he is PERC negative. CBC to assess white blood cell count, hemoglobin, platelets, differential. BMP to assess renal function, electrolytes, glucose. High-sensitivity troponin and EKG to rule out ischemic causes. Chest x-ray to rule out pneumonia. CBC shows no leukocytosis. Hemoglobin hematocrit are stable. Platelets are normal. Renal function electrolytes within normal limits. High-sensitivity troponin 8. Chest x-ray on my interpretation shows no acute cardiopulmonary process. The radiologist interpretation agrees. EKG shows a sinus rhythm at 71 bpm without sign ischemic change or ectopy on my interpretation. Patient alert and awake in no distress. I do not think he needs a CT scan of his brain. I will give him neurology follow-up. He is counseled also follow-up with his PCP. Impression: 1. Breakthrough seizure 2. Chest pain Lab Data Attestation: I reviewed the patient's lab results. Labs: Laboratory Results - last 24 hr 10/28/22 10/28/22 10:47 10:47 WBC 9.3 RBC 4.64 Hgb 15.1 Hct 44.8 MCV 96.6 H MCH 32.5 H MCHC 33.7 RDW Std Deviation 46.4 H RDW Coeff of Zahraa 13.0 Plt Count 346 MPV 9.2 Immature Gran % (Auto) 0.400 Neut % (Auto) 69.1 Lymph % (Auto) 22.4 Blount % (Auto) 5.2 Eos % (Auto) 2.4 Baso % (Auto) 0.5 Absolute Neuts (auto) 6.4 Absolute Lymphs (auto) 2.07 Nucleated RBC % 0 Sodium 139 Potassium 3.7 Chloride 106 Carbon Dioxide 29.0 Anion Gap 4 L BUN 9 Creatinine 0.80 Estim Creat Clear Calc 146.42 Est GFR (MDRD) Af Amer 149 Est GFR (MDRD) Non-Af 123 BUN/Creatinine Ratio 11.3 Glucose 95 Calcium 9.0 Troponin I High Sens 8 Radiography Diagnostic Testing: Clinical Impression(s) from Imaging Studies Chest X-Ray 10/28/22 10:27 IMPRESSION: No radiographic evidence of acute cardiopulmonary disease. Electronically Signed: Donna Velasquez MD at 11:16 EDT , Discharge Plan Triage Chief Complaint: Chest Other ED Provider: Timoteo Katz Dx/Rx/DC Orders Prescriptions: No Action escitalopram oxalate 10 mg tablet 10 mg PO DAILY Label Comments: TAKE 1 TABLET BY MOUTH EVERY DAY levetiracetam [Keppra] 500 mg tablet 500 mg PO BID Qty: 60 1RF Primary Care Provider: Ha Mary Referrals: Ha Mary MD [Primary Care Provider] -
[2022-10-28 11:22] LABS: Anion Gap 4 (5-15); BUN 9 mg/dL (7-18); BUN/Creat Ratio 11.3 RATIO (10-20); Chloride 106 mmol/L (98-107); EST Glomerular Filtration Rate 123 mL/min (>60); Est Glom Filt Rate - Afr Amer 149 mL/min (>60); Estimated Creatinine Clearance 146.42 ml/min; Glucose 95 mg/dL (74-106); Potassium 3.7 mmol/L (3.5-5.1); Sodium Level 139 mmol/L (136-145); Troponin-I HS 8 pg/mL (3.0-78.0)
[2022-10-28 12:20] VITALS: BP 134/77
== END 2022-10-28 12:21 | disposition home or self-care (01) ==
PROVIDERS: Emergency Provider Student in an Organized Health Care Education/Training Program; PCP Family Medicine; Visit Provider Student in an Organized Health Care Education/Training Program
DX: R07.9 Chest pain, unspecified (principal); G40.89 Other seizures; F17.210 Nicotine dependence, cigarettes, uncomplicated; Z79.899 Other long term (current) drug therapy; F32.A Depression, unspecified; F17.290 Nicotine dependence, other tobacco product, uncomplicated
CPT/HCPCS: 71045; 80048; 84484; 85025; 93005; 99285; A4216

== ENCOUNTER 2023-03-17 11:11 | Emergency (ER) | payer BC, MEDICAID, SELFPAY ==
[2023-03-17 11:12] VITALS: BP 151/90; PULSE 94; RESP 18; TEMP 35.9; O2SAT 97; BMI 25.4
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
--- NOTE | 2023-03-17 11:32 | RAD_ITS ---
STUDY: X-RAY - LEFT WRIST REASON FOR EXAM: Male, 27 years old. Injury. Pain. TECHNIQUE: 3 view(s) of the wrist were obtained. COMPARISON: None. FINDINGS: Normal visualized distal radius and ulna. Normal radiocarpal articulation. Normal distal radioulnar articulation. Normal carpal bones. Normal carpal articulations. Normal carpometacarpal articulation of the thumb. Normal second through fifth carpometacarpal articulations. Normal visualized metacarpal bones. Normal soft tissues. RAD/Wrist min 3 Views IMPRESSION: Normal x-ray examination of the wrist. Electronically Signed: Benson Hughes MD at 12:22 EST ,
== END 2023-03-17 12:10 | disposition home or self-care (01) ==
PROVIDERS: Emergency Provider Emergency Medicine; PCP Family Medicine; Visit Provider Emergency Medicine
DX: M77.9 Enthesopathy, unspecified (principal); M25.532 Pain in left wrist; M25.432 Effusion, left wrist; F17.210 Nicotine dependence, cigarettes, uncomplicated; F17.220 Nicotine dependence, chewing tobacco, uncomplicated
CPT/HCPCS: 73110; 99283

== ENCOUNTER 2023-08-27 08:22 | Emergency (ER) | payer SELFPAY ==
[2023-08-27 08:23] VITALS: BP 131/86; PULSE 109; RESP 18; TEMP 36.4; O2SAT 98; BMI 25.4
--- NOTE | 2023-08-27 08:37 | EKG12_ITS ---
Test Reason : SOB Blood Pressure : / mmHG Vent. Rate : 106 BPM Atrial Rate : 000 BPM P-R Int : 000 ms QRS Dur : 090 ms QT Int : 340 ms P-R-T Axes : 000 021 012 degrees QTc Int : 451 ms Accelerated Junctional rhythm Abnormal ECG Confirmed by ZULLY CASTRO, NETO ([id number]), editor managing newspaper CHRISTIANO PEREZ ([id number]) on 08/28/2023 8:18:11 AM Referred By: Confirmed By:NETO ANDREA MD
--- NOTE | 2023-08-27 08:37 | ED.VIS.CHEST ---
HPI History of Present Illness Chief Complaint: Chest Other Informant: patient and spouse/S.O. Narrative Narrative: 28-year-old male presenting to the emergency room with a chief complaint of chest pain. Patient has had a generalized chest tightness for about 1 month with associated cough. He notes a history of asthma and uses a inhaler which she states is greater than 1-year-old. He notes the cough is not really productive. He notes a burning like pain in the left lower mid axillary ribs that is worse with movement. He notes that he has coughing fits at times. He denies any significant rhinorrhea sore throat or fever. Denies any vomiting or diarrhea. [facility] Medical History (Updated 08/27/23 @ 10:[address] Randy Cano DO) Anxiety Asthma Depression Seizures Home Medications escitalopram oxalate 10 mg tablet 10 mg PO DAILY depression 06/27/21 [History Last Taken Unknown] levetiracetam 500 mg tablet (Keppra) 500 mg PO BID #60 tabs 08/14/21 [Rx Last Taken Unknown] albuterol sulfate 90 mcg/actuation aerosol inhaler 2 puff inhalation Q4H PRN PRN shortness of breath or wheezing 08/27/23 [History Last Taken Unknown] albuterol sulfate 90 mcg/actuation aerosol inhaler (Ventolin HFA) 2 puff inhalation Q4H PRN PRN Wheezing ##1 08/27/23 [Rx Last Taken Unknown] prednisone 20 mg tablet 60 mg (3 x 20 mg) PO DAILY #15 TABLETS 08/27/23 [Rx Last Taken Unknown] Allergy/AdvReac Type Severity Reaction Status Date / Time venlafaxine [From Effexor] Allergy Other Verified 08/27/23 08:23 Family History Mother Heart disease Social History Smoking Status: Current some day smoker tobacco type: cigarettes and smokeless tobacco ROS ROS ED Constitutional Constitutional ED: Denies chills, fever(s) or weight loss Eyes Eyes: Denies change in vision or diplopia ENT ENT ED: Denies ear pain, rhinorrhea or sore throat Cardiovascular Cardiovascular: Reports chest pain; Denies orthopnea, palpitations or racing heartbeat Respiratory/Chest Respiratory/Chest: Reports cough; Denies dyspnea or orthopnea Gastrointestinal Gastrointestinal: Denies abdominal pain, diarrhea, nausea or vomiting Genitourinary Genitourinary ED: Denies dysuria, hematuria or urinary frequency Musculoskeletal Musculoskeletal: Denies arthralgias or myalgias Integumentary Denies abscess or rash Neurologic Neurologic: Denies headache(s) or weakness Psychiatric Psychiatric: Denies anxiety, depression, suicidal ideation or suicidal thoughts Endocrine Endocrinology: Denies polydipsia, polyphagia or polyuria Allergic/Immunologic Allergic/Immunologic ED: Denies mouth swelling, tongue swelling or urticaria EXAM Physical Exam Const Vital Signs: 08/27/23 08:23 08/27/23 08:43 08/27/23 08:56 Temperature 97.5 F L Temperature Source Temporal Pulse Rate 109 H Respiratory Rate 18 Respiratory Effort Normal Non-Labored Blood Pressure 131/86 H Blood Pressure Mean 101 Pulse Ox 98 99 Oxygen Delivery Method Room Air Room Air 08/27/23 08:56 Temperature Temperature Source Pulse Rate 121 H Respiratory Rate 16 Respiratory Effort Blood Pressure Blood Pressure Mean Pulse Ox Oxygen Delivery Method Positive well nourished and well developed General Appearance ED: well developed HEENT Reports normocephalic, head/scalp atraumatic and moist mucous membranes Eyes PERRL and EOMs intact bilaterally Neck no lymphadenopathy, supple and no JVD Chest Wall Chest Narrative: Tender palpation in the mid axillary line of the lower left ribs in the area that the patient states is burning. Resp normal respiratory effort Resp Narrative: Patient has a dry cough whenever I ask him to inhale during lung auscultation Auscultation: wheezes expiratory wheezes (Faint end expiratory) Cardio regular rate, regular rhythm and no murmurs GI normal to inspection, nondistended, normoactive bowel sounds and non-tender Palpation: soft Back/Spine no CVA tenderness and normal ROM Extremity normal to inspection General Extremety ED: Negative for edema General Extremity: Negative for edema Neuro oriented x3 and CN's II-XII intact bilaterally Sensorium / Orientation: alert Motor Exam: strength 5/5 throughout Psych mental status grossly normal Mood & Affect: Negative for depressed or tearful Skin no rashes or lesions noted and no wounds MDM MDM MDM Narrative Medical decision making narrative: My independent interpretation of the chest x-ray is no acute process. EKG is a sinus rhythm with a rate of 106 bpm. Repeat examination shows his heart rate to be actually down to around 91. D-dimer is normal troponin is normal. Potassium slightly low at 3.2. Hemoglobin 14.4. Patient was given a DuoNeb and he notes that he was coughing less. I will write for him to have a new albuterol MDI with spacer. Will place him on 5 days of prednisone which I think might help the chest pain which I think is chest wall related. Patient should follow-up with primary care in a week if not improved History & Record Review Discussion w/independent historian: Patient and Significant other Lab Data Attestation: I reviewed the patient's lab results. Labs: Laboratory Results - last 24 hr 08/27/23 08:47 WBC 6.3 RBC 4.22 L Hgb 14.4 Hct 40.9 MCV 96.9 H MCH 34.1 H MCHC 35.2 RDW Std Deviation 47.6 H RDW Coeff of Zahraa 13.3 Plt Count 307 MPV 9.0 Immature Gran % (Auto) 0.300 Neut % (Auto) 71.4 H Lymph % (Auto) 18.7 L [place] % (Auto) 7.7 Eos % (Auto) 1.4 Baso % (Auto) 0.5 Absolute Neuts (auto) 4.5 Absolute Lymphs (auto) 1.17 Nucleated RBC % 0 D-Dimer Quant (PE/DVT) < 0.27 L Sodium 135 L Potassium 3.2 L Chloride 99 Carbon Dioxide 28.0 Anion Gap 8 BUN 9 Creatinine 0.86 Estim Creat Clear Calc 134.99 Est GFR (MDRD) Af Amer 135 Est GFR (MDRD) Non-Af 112 BUN/Creatinine Ratio 10.5 Glucose 102 Calcium 9.1 Troponin I High Sens 5 Radiography Diagnostic Testing: Clinical Impression(s) from Imaging Studies Chest X-Ray 08/27/23 09:10 IMPRESSION: Normal x-ray examination of the chest. Electronically Signed: Raymond Ward MD at 9:32 EDT , EKG Initial EKG: Attestation: I personally reviewed and interpreted this EKG as follows: Comments: Sinus rhythm ventricular rate of 106 bpm Discharge Plan Triage Chief Complaint: Chest Other ED Provider: Randy Cano Dx/Rx/DC Orders Clinical Impression: Acute chest wall pain, Cough, Asthma Instructions: Asthma Prescriptions: New prednisone 20 mg tablet 60 mg PO DAILY Qty: 15 0RF albuterol sulfate [Ventolin HFA] 90 mcg/actuation HFA aerosol inhaler 2 puff inhalation Q4H PRN PRN (Reason: Wheezing) Qty: 1 0RF Rx Instructions: with spacer No Action escitalopram oxalate 10 mg tablet 10 mg PO DAILY Patient Comments: TAKE 1 TABLET BY MOUTH EVERY DAY levetiracetam [Keppra] 500 mg tablet 500 mg PO BID Qty: 60 1RF albuterol sulfate 90 mcg/actuation HFA aerosol inhaler 2 puff INHALATION Q4H PRN PRN (Reason: shortness of breath or wheezing) Primary Care Provider: Ha Mary Referrals: Ha Mary MD [Primary Care Provider] - 1 Week if not improving Disposition Disposition: Home, Self Care
[2023-08-27] MEDS: Ipratropium/Albuterol Sulfate 3 ML AMPUL.NEB INHALATION (08:54)
[2023-08-27 08:56] VITALS: PULSE 121; RESP 16; O2SAT 99
[2023-08-27 08:56] LABS: Absolute Lymphocyte Count 1.17 X10^3/uL (0.83-4.51); Absolute Neutrophil Count 4.5 X10^3/uL (2.0-7.7); Basophil# 0.03 X10^3/uL; Basophil% 0.5 % (0-1); Eosinophil# 0.09 X10^3/uL; Eosinophils% 1.4 % (0-5); Hematocrit 40.9 % (40-54); Hemoglobin 14.4 g/dL (13.0-16.5); Lymphocyte # 1.17 X10^3/ul (0.83-4.51); Lymphocyte % 18.7 % (19-41); Mean Corp Hgb Conc 35.2 g/dL (32-36); Mean Corpuscular Hgb 34.1 pg (27.0-32.0); Mean Corpuscular Volume 96.9 fL (80-94); Monocyte# 0.48 X10^3/uL; Monocyte% 7.7 % (0-10); NRBC Flagged by Analyzer 0 % (0-5); Neutrophil # 4.48 X10^3/uL (2.7-7.7); Neutrophil % 71.4 % (47-70); Platelet Count 307 K/mm3 (150-450); RBC Distribution Width CV 13.3 % (11.6-14.6); RBC Distribution Width SD 47.6 fl (35.1-43.9); Red Blood Count 4.22 M/mm3 (4.6-6.2); White Blood Count 6.3 K/mm3 (4.4-11.0)
--- NOTE | 2023-08-27 09:10 | RAD_ITS ---
STUDY: X-RAY CHEST REASON FOR EXAM: Male, 28 years old. Chest pain TECHNIQUE: Single AP portable view of the chest. COMPARISON: Comparison is made with prior study dated October 28, 2022. FINDINGS: The lungs are clear and expanded. There is no demonstrated pleural abnormality. Normal size heart. Normal mediastinum and kya. Normal visualized pulmonary arteries. Normal visualized aortic arch and descending thoracic aorta. Normal visualized thoracic spine. Normal visualized ribs, clavicles, and shoulders. There is no demonstrated abnormality of the visualized soft tissue structures of the upper abdomen. RAD/Chest 1 View (Portable) IMPRESSION: Normal x-ray examination of the chest. Electronically Signed: Raymond Ward MD at 9:32 EDT ,
[2023-08-27 09:17] LABS: Anion Gap 8 (5-15); BUN 9 mg/dL (7-18); BUN/Creat Ratio 10.5 RATIO (10-20); Calcium,Total 9.1 mg/dL (8.5-10.1); Chloride 99 mmol/L (98-107); Creatinine, Serum 0.86 mg/dL (0.70-1.30); EST Glomerular Filtration Rate 112 mL/min (>60); Est Glom Filt Rate - Afr Amer 135 mL/min (>60); Estimated Creatinine Clearance 134.99 ml/min; Glucose 102 mg/dL (74-106); Potassium 3.2 mmol/L (3.5-5.1); Sodium Level 135 mmol/L (136-145); Troponin-I HS 5 pg/mL (3.0-78.0)
[2023-08-27 09:47] LABS: D-Dimer Quantitative (DVT/PE) < 0.27 FEU/ug/m (0.27-0.49)
[2023-08-27 10:31] VITALS: BP 124/85; PULSE 99; RESP 16; TEMP 36.4; O2SAT 95
== END 2023-08-27 10:33 | disposition home or self-care (01) ==
PROVIDERS: Emergency Provider Emergency Medicine; PCP Family Medicine; Visit Provider Emergency Medicine
DX: R07.89 Other chest pain (principal); R05.9 Cough, unspecified; J45.909 Unspecified asthma, uncomplicated; R07.81 Pleurodynia; F17.210 Nicotine dependence, cigarettes, uncomplicated; Z79.899 Other long term (current) drug therapy
CPT/HCPCS: 71045; 80048; 84484; 85025; 85379; 93005; 94640; 99283; A4216

== ENCOUNTER 2024-02-25 19:40 | Emergency (ER) | payer SELFPAY ==
[2024-02-25 19:41] VITALS: BP 118/91; PULSE 110; RESP 18; TEMP 37.1; O2SAT 98; BMI 25.0
--- NOTE | 2024-02-25 21:30 | ED.RN ---
PT CALLS OUT FOR THE NURSE STATING HE WOULD LIKE TO LEAVE DUE TO BEING HERE FOR AN HOUR AND HALF AND NO DR HAS COME TO SEE HIM YET. PT EDUCATED ON RISKS OF LEAVING. PT STATED HE WILL LEAVE AND FIND ANOTHER DR TO LOOK AT HIM. CHARGE AND REGISTRATION NOTIFIED.
== END 2024-02-25 21:31 | disposition left against medical advice (07) ==
LOC: ED 21:30
PROVIDERS: PCP Family Medicine
DX: R50.9 Fever, unspecified (principal); R19.7 Diarrhea, unspecified; Z53.21 Procedure and treatment not carried out due to patient leaving prior to being seen by health care provider
CPT/HCPCS: 99281